=== PATIENT | female | born 1940 | race Caucasian/White ===

== ENCOUNTER 2017-05-05 15:25 | Emergency (ER) | payer MEDICARE ==
[~2017-05-05] VITALS: Ht 160 cm; Wt 79.0 kg
[2017-05-05] MEDS ORDERED: ASPIRIN325 MG PO (15:35)
[2017-05-05] MEDS ORDERED: MONTELUKAST SOD10 MG PO (15:36)
[2017-05-05] MEDS ORDERED: LIPITOR40 M1 PO (15:36)
[2017-05-05] MEDS ORDERED: LISINOPRIL10 MG PO (15:36)
[2017-05-05] MEDS ORDERED: PRILOSEC OTC20 MG PO (15:36)
[2017-05-05] MEDS ORDERED: NAPROXEN250 MG PO (15:37)
[2017-05-05] MEDS ORDERED: CITALOPRAM20 MG PO (15:37)
[2017-05-05] MEDS ORDERED: ALBUTEROL SUL0.083 % IN (15:37)
[2017-05-05] MEDS ORDERED: TRAMADOL HYDROC50 MG PO (16:42)
[2017-05-05 16:50] VITALS: BP 135/70
== END 2017-05-05 16:55 | disposition home or self-care (01) ==
LOC: ED 15:25
PROC: 2W3CX1Z Immobilization of Right Lower Arm using Splint (ICD-10-PCS; principal; 2017-05-05)
DX: S63.501A Unspecified sprain of right wrist, initial encounter (principal); S80.212A Abrasion, left knee, initial encounter; S00.81XA Abrasion of other part of head, initial encounter; I10 Essential (primary) hypertension; J44.9 Chronic obstructive pulmonary disease, unspecified; W01.0XXA Fall on same level from slipping, tripping and stumbling without subsequent striking against object, initial encounter; Y92.481 Parking lot as the place of occurrence of the external cause

== ENCOUNTER 2017-05-15 18:28 | Inpatient (IN) | payer MEDICARE ==
[~2017-05-15] VITALS: Ht 160 cm; Wt 65.0 kg
[~2017-05-15 18:28] MED LIST: ALBUTEROL SUL0.083 % IN; ASPIRIN325 MG PO; CITALOPRAM20 MG PO; LIPITOR40 M1 PO; LISINOPRIL10 MG PO; MONTELUKAST SOD10 MG PO; NAPROXEN250 MG PO; PRILOSEC OTC20 MG PO; TRAMADOL HYDROC50 MG PO
[2017-05-15 18:56] LABS: HEMATOCRIT 38.2 % (37.0-47.0); IMMATURE GRANULOCYTES 0.4 % (0.0-1.0); MEAN CELL VOLUME 80.4 fL CALC (80.0-100.0); MEAN CORPUSCULAR HGB 25.3 pG CALC (26.0-32.0); MEAN CORPUSCULAR HGB CONC 31.4 g/L CALC (32.0-36.0); NEUT# 3.86 thou/uL (2.00-7.15); RED BLOOD COUNT 4.75 mill/uL (4.20-5.60); RED CELL DISTRI WIDTH 15.1 % (11.5-15.5)
[2017-05-15 19:50] LABS: ALBUMIN 3.6 g/dL (3.2-5.0); ALKALINE PHOSPHATASE 88 u/l (38-126); ANION GAP 14 (6-22 (CALC)); BILIRUBIN, TOTAL 0.5 mg/dL (0.0-1.4); BUN 20 mg/dL (8-23); BUN/CREATININE RATIO 20 (12-20 (CALC)); CALCIUM 9.1 mg/dL (8.4-10.2); CARBON DIOXIDE 27 mmol/l (22-30); CHLORIDE 97 mmol/l (95-108); GFR 54 ML/MIN (>=60 (CALC)); GFR FOR AFR.AMER. > 60 ML/MIN (>=60 (CALC)); GLUCOSE 116 mg/dL (82-115); POTASSIUM 3.5 mmol/l (3.5-5.1); SGOT/AST 33 u/l (9-36); SGPT/ALT 38 u/l (11-66); SODIUM 135 mmol/l (137-146); TOTAL PROTEIN 6.5 g/dL (6.3-8.2)
[2017-05-15] MEDS ORDERED: BREO ELLIPTA1 INH IN (19:54)
[2017-05-15] MEDS ORDERED: ASPIRIN81 MG PO (19:56)
[2017-05-15] MEDS ORDERED: ZPAK PO (19:56)
[2017-05-15] MEDS ORDERED: ZOFRAN ODT4 MG PO (19:57)
[2017-05-15 20:00] VITALS: BP 138/59
[2017-05-15 20:01] LABS: MYOGLOBIN 72 ng/mL (0 - 62)
[2017-05-15 20:31] LABS: INTERNATIONAL NORMALIZED RATIO 0.9 RATIO (0.7-1.3); PROTHROMBIN TIME 10.1 SECONDS (9.0-12.5)
[2017-05-15 22:15] VITALS: BP 142/69
[2017-05-16 04:55] VITALS: BP 130/61
[2017-05-16 09:00] VITALS: BP 135/66
[2017-05-16 11:20] VITALS: BP 132/65
[2017-05-16 15:45] VITALS: BP 150/63
[2017-05-16 19:30] VITALS: BP 152/89
[2017-05-16 23:58] VITALS: BP 115/54
[2017-05-17] VITALS (12 sets, daily range): BP systolic 101–145; BP diastolic 47–70
[2017-05-17 10:39] LABS: HEMATOCRIT 33.8 % (37.0-47.0); HEMOGLOBIN 10.6 g/dl (12.0-16.0); IMMATURE GRANULOCYTES 0.3 % (0.0-1.0); MEAN CELL VOLUME 81.6 fL CALC (80.0-100.0); MEAN CORPUSCULAR HGB 25.6 pG CALC (26.0-32.0); MEAN CORPUSCULAR HGB CONC 31.4 g/L CALC (32.0-36.0); NEUT# 5.84 thou/uL (2.00-7.15); RED BLOOD COUNT 4.14 mill/uL (4.20-5.60); RED CELL DISTRI WIDTH 15.1 % (11.5-15.5)
[2017-05-17 10:52] LABS: ANION GAP 11 (6-22 (CALC)); BUN 19 mg/dL (8-23); BUN/CREATININE RATIO 24 (12-20 (CALC)); CALCIUM 8.7 mg/dL (8.4-10.2); CARBON DIOXIDE 30 mmol/l (22-30); CHLORIDE 99 mmol/l (95-108); CREATININE 0.8 mg/dL (0.5-1.0); GFR > 60 ML/MIN (>=60 (CALC)); GFR FOR AFR.AMER. > 60 ML/MIN (>=60 (CALC)); GLUCOSE 144 mg/dL (82-115); POTASSIUM 3.2 mmol/l (3.5-5.1); SODIUM 137 mmol/l (137-146)
[2017-05-18] VITALS (12 sets, daily range): BP systolic 108–146; BP diastolic 47–74
[2017-05-18 05:04] LABS: HEMATOCRIT 31.7 % (37.0-47.0); HEMOGLOBIN 9.9 g/dl (12.0-16.0); IMMATURE GRANULOCYTES 0.2 % (0.0-1.0); MEAN CELL VOLUME 81.1 fL CALC (80.0-100.0); MEAN CORPUSCULAR HGB 25.3 pG CALC (26.0-32.0); MEAN CORPUSCULAR HGB CONC 31.2 g/L CALC (32.0-36.0); NEUT# 3.35 thou/uL (2.00-7.15); RED BLOOD COUNT 3.91 mill/uL (4.20-5.60); RED CELL DISTRI WIDTH 15.1 % (11.5-15.5)
[2017-05-18 05:24] LABS: ANION GAP 9 (6-22 (CALC)); BUN 16 mg/dL (8-23); BUN/CREATININE RATIO 19 (12-20 (CALC)); CALCIUM 8.7 mg/dL (8.4-10.2); CARBON DIOXIDE 33 mmol/l (22-30); CHLORIDE 100 mmol/l (95-108); CREATININE 0.8 mg/dL (0.5-1.0); GFR > 60 ML/MIN (>=60 (CALC)); GFR FOR AFR.AMER. > 60 ML/MIN (>=60 (CALC)); GLUCOSE 106 mg/dL (82-115); POTASSIUM 3.4 mmol/l (3.5-5.1); SODIUM 138 mmol/l (137-146)
[2017-05-18 08:40] LABS: MAGNESIUM 1.8 mg/dL (1.6-2.3)
[2017-05-19] VITALS (10 sets, daily range): BP systolic 109–151; BP diastolic 39–73
[2017-05-19 04:41] LABS: HEMATOCRIT 31.3 % (37.0-47.0); HEMOGLOBIN 9.8 g/dl (12.0-16.0); MEAN CELL VOLUME 81.9 fL CALC (80.0-100.0); MEAN CORPUSCULAR HGB 25.7 pG CALC (26.0-32.0); MEAN CORPUSCULAR HGB CONC 31.3 g/L CALC (32.0-36.0); RED BLOOD COUNT 3.82 mill/uL (4.20-5.60); RED CELL DISTRI WIDTH 15.2 % (11.5-15.5)
[2017-05-19 04:54] LABS: ANION GAP 11 (6-22 (CALC)); BUN 17 mg/dL (8-23); BUN/CREATININE RATIO 20 (12-20 (CALC)); CALCIUM 8.6 mg/dL (8.4-10.2); CARBON DIOXIDE 32 mmol/l (22-30); CHLORIDE 101 mmol/l (95-108); CREATININE 0.9 mg/dL (0.5-1.0); GFR > 60 ML/MIN (>=60 (CALC)); GFR FOR AFR.AMER. > 60 ML/MIN (>=60 (CALC)); GLUCOSE 103 mg/dL (82-115); MAGNESIUM 1.9 mg/dL (1.6-2.3); SODIUM 140 mmol/l (137-146)
[2017-05-19] MEDS ORDERED: NEBULIZER COMPRESSOR (11:57)
[2017-05-19] MEDS ORDERED: CARDIZEM CD120 M1 PO (11:57)
[2017-05-19] MEDS ORDERED: XARELTO10 MG PO (11:57)
[2017-05-19] MEDS ORDERED: DUONEB IN (11:57)
[2017-05-19] MEDS ORDERED: VANTIN200 M1 PO (11:57)
== END 2017-05-19 18:40 | DRG 190 ==
LOC: ED 18:28 → ED-I 19:45 → ED 21:13 → MS2 21:13 → ICU 21:13 → MS2 21:13 → ICU 05-17 15:32
PROVIDERS: Emergency Medicine; Internal Medicine; Nurse Practitioner Family; ADMIT Internal Medicine; ATTEND Internal Medicine
DX: J44.0 Chronic obstructive pulmonary disease with (acute) lower respiratory infection (principal); J18.9 Pneumonia, unspecified organism; J96.11 Chronic respiratory failure with hypoxia; I48.0 Paroxysmal atrial fibrillation; D64.9 Anemia, unspecified; I10 Essential (primary) hypertension; E78.5 Hyperlipidemia, unspecified; T36.3X5A Adverse effect of macrolides, initial encounter; T50.995A Adverse effect of other drugs, medicaments and biological substances, initial encounter; S63.501D Unspecified sprain of right wrist, subsequent encounter; G47.33 Obstructive sleep apnea (adult) (pediatric); F41.9 Anxiety disorder, unspecified; F32.9 Major depressive disorder, single episode, unspecified; M19.90 Unspecified osteoarthritis, unspecified site; I25.10 Atherosclerotic heart disease of native coronary artery without angina pectoris; E66.9 Obesity, unspecified; W19.XXXD Unspecified fall, subsequent encounter; Z86.73 Personal history of transient ischemic attack (TIA), and cerebral infarction without residual deficits; Z87.891 Personal history of nicotine dependence
CPT/HCPCS: J1650

== ENCOUNTER 2017-07-02 14:29 | Inpatient (IN) | payer MEDICARE ==
[~2017-07-02] VITALS: Ht 160 cm; Wt 75.4 kg
[~2017-07-02 14:29] MED LIST changes: +ASPIRIN81 MG PO; +BREO ELLIPTA1 INH IN; +CARDIZEM CD120 M1 PO; +DUONEB IN; +NEBULIZER COMPRESSOR; +VANTIN200 M1 PO; +XARELTO10 MG PO; +ZOFRAN ODT4 MG PO; +ZPAK PO
[2017-07-02 16:06] LABS: HEMATOCRIT 35.6 % (37.0-47.0); HEMOGLOBIN 11.3 g/dl (12.0-16.0); IMMATURE GRANULOCYTES 0.5 % (0.0-1.0); MEAN CELL VOLUME 79.5 fL CALC (80.0-100.0); MEAN CORPUSCULAR HGB 25.2 pG CALC (26.0-32.0); MEAN CORPUSCULAR HGB CONC 31.7 g/L CALC (32.0-36.0); NEUT# 11.8 thou/uL (2.00-7.15); RED BLOOD COUNT 4.48 mill/uL (4.20-5.60); RED CELL DISTRI WIDTH 15.8 % (11.5-15.5)
[2017-07-02 16:21] LABS: ALKALINE PHOSPHATASE 124 u/l (38-126); ANION GAP 14 (6-22 (CALC)); BILIRUBIN, TOTAL 0.7 mg/dL (0.0-1.4); BUN 15 mg/dL (8-23); BUN/CREATININE RATIO 17 (12-20 (CALC)); CALCIUM 9.7 mg/dL (8.4-10.2); CARBON DIOXIDE 26 mmol/l (22-30); CHLORIDE 101 mmol/l (95-108); CREATININE 0.9 mg/dL (0.5-1.0); GFR > 60 ML/MIN (>=60 (CALC)); GFR FOR AFR.AMER. > 60 ML/MIN (>=60 (CALC)); GLUCOSE 135 mg/dL (82-115); SGOT/AST 19 u/l (9-36); SGPT/ALT 23 u/l (11-66); SODIUM 137 mmol/l (137-146); TOTAL PROTEIN 7.1 g/dL (6.3-8.2)
[2017-07-02 16:33] LABS: MYOGLOBIN 113 ng/mL (0 - 62)
[2017-07-02 23:40] VITALS: BP 139/65
[2017-07-03 04:35] VITALS: BP 122/56
[2017-07-03 06:51] LABS: URINE BILIRUBIN - DIPSTICK NEGATIVE (NEGATIVE); URINE BLOOD DIPSTICK NEGATIVE (NEGATIVE); URINE COLOR YELLOW; URINE GLUCOSE - DIPSTICK NEGATIVE (NEGATIVE); URINE KETONE NEGATIVE (NEGATIVE); URINE LEUK ESTERASE NEGATIVE (NEGATIVE); URINE NITRITE - DIPSTICK NEGATIVE (Negative); URINE PH 5.5 (4.5-8.0); URINE PROTEIN - DIPSTICK TRACE mg/dL (NEG-TRACE); URINE UROBILINOGEN - DIPSTICK 0.2 E.U./dL (0.2)
[2017-07-03 06:53] LABS: URINE CLARITY CLEAR
[2017-07-03 08:56] VITALS: BP 138/55
[2017-07-03] MEDS ORDERED: HYDROCHLOROT12.5 M1 PO (09:40)
[2017-07-03] MEDS ORDERED: DALIRESP500 MCG PO (09:41)
[2017-07-03] MEDS ORDERED: FLONASE AL50 MCG/ACT (09:42)
[2017-07-03] MEDS ORDERED: BUSPIRONE7.5 MG PO (09:43)
[2017-07-03 12:29] VITALS: BP 136/64
[2017-07-03 16:47] VITALS: BP 127/61
[2017-07-03 19:30] VITALS: BP 125/52
[2017-07-03 23:54] VITALS: BP 129/64
[2017-07-04 05:24] VITALS: BP 108/50
[2017-07-04 06:01] LABS: HEMATOCRIT 31.9 % (37.0-47.0); HEMOGLOBIN 10.1 g/dl (12.0-16.0); IMMATURE GRANULOCYTES 0.7 % (0.0-1.0); MEAN CELL VOLUME 80.2 fL CALC (80.0-100.0); MEAN CORPUSCULAR HGB 25.4 pG CALC (26.0-32.0); MEAN CORPUSCULAR HGB CONC 31.7 g/L CALC (32.0-36.0); NEUT# 11.47 thou/uL (2.00-7.15); RED BLOOD COUNT 3.98 mill/uL (4.20-5.60); RED CELL DISTRI WIDTH 15.9 % (11.5-15.5)
[2017-07-04 06:40] LABS: ANION GAP 17 (6-22 (CALC)); BUN 31 mg/dL (8-23); BUN/CREATININE RATIO 31 (12-20 (CALC)); CALCIUM 9.7 mg/dL (8.4-10.2); CARBON DIOXIDE 25 mmol/l (22-30); CHLORIDE 102 mmol/l (95-108); GFR 54 ML/MIN (>=60 (CALC)); GFR FOR AFR.AMER. > 60 ML/MIN (>=60 (CALC)); GLUCOSE 144 mg/dL (82-115); MAGNESIUM 2.1 mg/dL (1.6-2.3); POTASSIUM 4.3 mmol/l (3.5-5.1); SODIUM 140 mmol/l (137-146)
[2017-07-04 08:08] VITALS: BP 149/67
[2017-07-04 08:30] LABS: C. DIFFICILE TOXIN A&B NEGATIVE (NEGATIVE)
[2017-07-04 11:00] VITALS: BP 167/68
[2017-07-04] MEDS ORDERED: DOXYCYCL HYC100 MG PO (13:20)
== END 2017-07-04 14:45 | disposition home or self-care (01) | DRG 190 ==
LOC: ED 14:29 → ED-I 15:40 → ED 17:11 → MS2 17:12
PROVIDERS: Emergency Medicine; Nurse Practitioner Family; ADMIT Internal Medicine; ATTEND Internal Medicine
DX: J44.1 Chronic obstructive pulmonary disease with (acute) exacerbation (principal); J96.21 Acute and chronic respiratory failure with hypoxia; I48.0 Paroxysmal atrial fibrillation; Z99.81 Dependence on supplemental oxygen; K52.9 Noninfective gastroenteritis and colitis, unspecified; I10 Essential (primary) hypertension; E78.5 Hyperlipidemia, unspecified; D64.9 Anemia, unspecified; Z79.01 Long term (current) use of anticoagulants; Z87.891 Personal history of nicotine dependence; Z87.01 Personal history of pneumonia (recurrent)
CPT/HCPCS: G0378

== ENCOUNTER 2017-12-06 15:17 | Inpatient (IN) | payer MEDICARE ==
[2017-12-06] VITALS (13 sets, daily range): BP systolic 114–147; BP diastolic 52–71
[~2017-12-06] VITALS: Ht 160 cm; Wt 78.6 kg
[~2017-12-06 15:17] MED LIST changes: +BUSPIRONE7.5 MG PO; +DALIRESP500 MCG PO; +DOXYCYCL HYC100 MG PO; +FLONASE AL50 MCG/ACT; +HYDROCHLOROT12.5 M1 PO
[2017-12-06 16:03] LABS: IMMATURE GRANULOCYTES 0.2 % (0.0-1.0); MEAN CELL VOLUME 80.2 fL CALC (80.0-100.0); MEAN CORPUSCULAR HGB 25.2 pG CALC (26.0-32.0); MEAN CORPUSCULAR HGB CONC 31.4 g/L CALC (32.0-36.0); NEUT# 10.26 thou/uL (2.00-7.15); RED BLOOD COUNT 4.84 mill/uL (4.20-5.60)
[2017-12-06 16:12] LABS: BUN 20 mg/dL (8-23); BUN/CREATININE RATIO 21 (12-20 (CALC)); CARBON DIOXIDE 25 mmol/l (22-30); CHLORIDE 100 mmol/l (95-108); GFR 54 ML/MIN (>=60 (CALC)); GFR FOR AFR.AMER. > 60 ML/MIN (>=60 (CALC)); SODIUM 136 mmol/l (137-146)
[2017-12-06 16:13] LABS: ANION GAP 14 (6-22 (CALC)); POTASSIUM 3.2 mmol/l (3.5-5.1)
[2017-12-06 16:14] LABS: HEMATOCRIT 38.8 % (37.0-47.0); HEMOGLOBIN 12.2 g/dl (12.0-16.0)
[2017-12-07] VITALS (9 sets, daily range): BP systolic 107–153; BP diastolic 47–81
[2017-12-07 06:57] LABS: HEMOGLOBIN 11.2 g/dl (12.0-16.0); MEAN CELL VOLUME 81.8 fL CALC (80.0-100.0); MEAN CORPUSCULAR HGB 25.5 pG CALC (26.0-32.0); MEAN CORPUSCULAR HGB CONC 31.1 g/L CALC (32.0-36.0); RED BLOOD COUNT 4.4 mill/uL (4.20-5.60); RED CELL DISTRI WIDTH 16.3 % (11.5-15.5)
[2017-12-07 08:04] LABS: BUN 17 mg/dL (8-23); BUN/CREATININE RATIO 20 (12-20 (CALC)); CARBON DIOXIDE 30 mmol/l (22-30); CHLORIDE 100 mmol/l (95-108); CREATININE 0.9 mg/dL (0.5-1.0); GFR > 60 ML/MIN (>=60 (CALC)); GFR FOR AFR.AMER. > 60 ML/MIN (>=60 (CALC)); MAGNESIUM 1.7 mg/dL (1.6-2.3); SODIUM 141 mmol/l (137-146)
[2017-12-07 08:14] LABS: ANION GAP 16 (6-22 (CALC)); POTASSIUM 4.5 mmol/l (3.5-5.1)
== END 2017-12-07 11:50 | disposition home or self-care (01) | DRG 310 ==
LOC: ED 15:17 → ED-I 16:36 → ED 16:48 → ICU 16:49
PROVIDERS: Family Medicine; Internal Medicine; ADMIT Internal Medicine; ATTEND Internal Medicine
DX: I48.0 Paroxysmal atrial fibrillation (principal); J44.9 Chronic obstructive pulmonary disease, unspecified; I10 Essential (primary) hypertension; E78.5 Hyperlipidemia, unspecified; Z79.01 Long term (current) use of anticoagulants; Z87.891 Personal history of nicotine dependence

== ENCOUNTER → 2018-09-15 | Outpatient (REF) ==
[~2018-09-15] MED LIST changes: +ANORO ELLIPTA 61 AER IN; +ATORVASTATIN CA20 MG PO; +CARDIZEM CD120 MG PO; +DIFLUCAN100 M1 PO; -FLONASE AL50 MCG/ACT; +FLONASE AL50 MCG/ACT IN; +LEVAQUIN750 M1 PO; +LISINOPRIL5 MG PO; +Levaquin PO; +PREDNISONE5 MG PO
== END | disposition home or self-care (01) | DRG 684 ==
LOC: LAB 14:24
PROVIDERS: ATTEND Nurse Practitioner Family
DX: N18.9 Chronic kidney disease, unspecified (principal); I10 Essential (primary) hypertension

== ENCOUNTER → 2018-09-15 | Outpatient (REF) | payer MEDICARE | END | disposition home or self-care (01) | LOC: DI 14:22 | PROVIDERS: ATTEND Nurse Practitioner Family | DX: R05 Cough (principal); J98.11 Atelectasis ==

== ENCOUNTER 2018-09-18 11:30 | Emergency (ER) | payer MEDICARE ==
[~2018-09-18] VITALS: Ht 160 cm; Wt 75.0 kg
[~2018-09-18 11:30] MED LIST changes: -ANORO ELLIPTA 61 AER IN; -ATORVASTATIN CA20 MG PO; -CARDIZEM CD120 MG PO; -DIFLUCAN100 M1 PO; -LEVAQUIN750 M1 PO; -LISINOPRIL5 MG PO; -Levaquin PO; -PREDNISONE5 MG PO
[2018-09-18] MEDS ORDERED: ANORO ELLIPTA 61 AER IN (11:48)
[2018-09-18] MEDS ORDERED: LISINOPRIL5 MG PO (11:49)
[2018-09-18 11:51] LABS: HEMATOCRIT 35.7 % (37.0-47.0); HEMOGLOBIN 10.7 g/dl (12.0-16.0); IMMATURE GRANULOCYTES 0.5 % (0.0-5.0); MEAN CELL VOLUME 83.2 fL CALC (80.0-100.0); MEAN CORPUSCULAR HGB 24.9 pG CALC (26.0-32.0); NEUT# 8.68 thou/uL (2.00-7.15); RED BLOOD COUNT 4.29 mill/uL (4.20-5.60); RED CELL DISTRI WIDTH 15.7 % (11.5-15.5)
[2018-09-18] MEDS ORDERED: Levaquin PO (11:53)
[2018-09-18 12:08] LABS: ALBUMIN 3.9 g/dL (3.2-5.0); ALKALINE PHOSPHATASE 110 u/l (38-126); ANION GAP 14 (6-22 (CALC)); BILIRUBIN, TOTAL 0.4 mg/dL (0.0-1.4); BUN 22 mg/dL (8-23); BUN/CREATININE RATIO 28 (12-20 (CALC)); CARBON DIOXIDE 27 mmol/l (22-30); CHLORIDE 102 mmol/l (95-108); CREATININE 0.8 mg/dL (0.5-1.0); GFR > 60 ML/MIN (>=60 (CALC)); GFR FOR AFR.AMER. > 60 ML/MIN (>=60 (CALC)); POTASSIUM 3.8 mmol/l (3.5-5.1); SGOT/AST 18 u/l (9-36); SODIUM 139 mmol/l (137-146); TOTAL PROTEIN 6.7 g/dL (6.3-8.2)
[2018-09-18 13:24] VITALS: BP 127/61
== END 2018-09-18 13:30 | disposition home or self-care (01) ==
LOC: ED 11:30
PROVIDERS: Emergency Medicine
DX: R00.2 Palpitations (principal); I10 Essential (primary) hypertension; R06.02 Shortness of breath; I48.91 Unspecified atrial fibrillation; Z86.73 Personal history of transient ischemic attack (TIA), and cerebral infarction without residual deficits

== ENCOUNTER 2018-09-24 13:16 | Inpatient (IN) | payer MEDICARE ==
[~2018-09-24] VITALS: Ht 160 cm; Wt 79.6 kg
[~2018-09-24 13:16] MED LIST changes: +ANORO ELLIPTA 61 AER IN; +LISINOPRIL5 MG PO; +Levaquin PO
--- NOTE | 2018-09-24 13:32 | NUR ---
PATIENT TO ROOM VIA WHEELCHAIR AND PRACTIONER AT BEDSIDE FOR EVAL
--- NOTE | 2018-09-24 14:25 | NUR ---
PATIENT REPORTS HAVING COUGH/COLD STARTING YESTERDAY, PRODUCTIVE COUGH PATIENT HAS DIMINISHED LUNG SOUNDS TO BILATERAL LOWER LOBES, CLEAR UPPER LOBES. REPORTS CHEST PRESSURE RATES 6/10. IV SITE TO RAC #20, LAB WORK COLLECTED. PATIENT UPDATED ON PLAN OF CARE. VERBAL UNDERSTANDING. WILL CONTINUE TO MONITOR.
[2018-09-24] MEDS ORDERED: CARDIZEM CD120 MG PO (14:44)
[2018-09-24] MEDS ORDERED: ATORVASTATIN CA20 MG PO (14:45)
[2018-09-24 15:04] LABS: HEMOGLOBIN 10.6 g/dl (12.0-16.0); IMMATURE GRANULOCYTES 0.7 % (0.0-5.0); MEAN CELL VOLUME 81.8 fL CALC (80.0-100.0); MEAN CORPUSCULAR HGB 24.8 pG CALC (26.0-32.0); MEAN CORPUSCULAR HGB CONC 30.3 g/L CALC (32.0-36.0); NEUT# 21.14 thou/uL (2.00-7.15); RED BLOOD COUNT 4.28 mill/uL (4.20-5.60); RED CELL DISTRI WIDTH 15.4 % (11.5-15.5)
[2018-09-24 15:21] LABS: ALBUMIN 3.7 g/dL (3.2-5.0); ALKALINE PHOSPHATASE 115 u/l (38-126); ANION GAP 13 (6-22 (CALC)); BILIRUBIN, TOTAL 0.5 mg/dL (0.0-1.4); BUN 17 mg/dL (8-23); BUN/CREATININE RATIO 21 (12-20 (CALC)); CARBON DIOXIDE 27 mmol/l (22-30); CHLORIDE 99 mmol/l (95-108); CREATININE 0.8 mg/dL (0.5-1.0); GFR > 60 ML/MIN (>=60 (CALC)); GFR FOR AFR.AMER. > 60 ML/MIN (>=60 (CALC)); POTASSIUM 3.1 mmol/l (3.5-5.1); SGOT/AST 20 u/l (9-36); SODIUM 136 mmol/l (137-146); TOTAL PROTEIN 6.5 g/dL (6.3-8.2)
--- NOTE | 2018-09-24 15:30 | NUR ---
JOHN AT BEDSIDE PER DAUGHTER'S REQUEST.
[2018-09-24 15:33] LABS: PROTHROMBIN TIME 10.5 SECONDS (9.0-12.5)
--- NOTE | 2018-09-24 16:15 | NUR ---
PATIENT REPORTS CHEST PRESSURE 4/10, DENIES ANY NAUSEA AFTER BEING MEDICATED WITH 10 MG OF REGLAN IV.
--- NOTE | 2018-09-24 16:20 | NUR ---
PATIENT REPORT HAVING TO USE C-PAP AT HOME FOR NIGHT TIME USE ONLY.
--- NOTE | 2018-09-24 17:07 | NUR ---
REPORT CALLED TO DILMA CINTRON.
--- NOTE | 2018-09-24 17:15 | NUR ---
PT ARRIVED TO FLOOR VIA STRETCHER IN STABLE CONDITION ACCOMPANIED BY ALIYA RAYO;WT AND VS OBTAINED BY DA YIN;PT AMBULATED WITH A STEADY GAIT TO RESTROOM AND VOIDED 50CC OF CLOUDY/YELLOW URINE;PT ALERT AND ORIENTED X3,ORIENTED TO ROOM AND CALL LIGHT SYTSEM;PT REPORTS INCREASING SOB, NAUSEA AND COUGHING X2 DAYS;PT REPORTS CHEST DISCOMFORT HAS DECREASED TO A 4/10 ON THE PAIN SCALE SINCE PAIN MEDICATION ADMINISTRATION IN ER, PAIN SCALE AND REPORTING EDUCATED;ASSESSMENT COMPLETED;RESPIRATIONS SHALLOW ON O2 @ 2L VIA NC, DIMINISHED LUNG SOUNDS NOTED;NON-PRODUCTIVE COUGH AT THIS TIME;ABDOMEN SOFT ON PALPATION AND ACTIVE IN ALL 4 QUADRANTS, LAST BM 09/24/18;STRONG PEDAL PULSES;SKIN INTACT;#20G TO RAC INFUSING FLUIDS WITH EASE,SITE APPEARS HEALTHY;ALL SAFETY PRECAUTIONS REINFORCED AT THIS TIME;FRESH WATER PROVIDED;PT DENIES ANY ADDITIONAL NEEDS AND IS ENCOURAGED TO CALL FOR ASSISTANCE IF NEEDED;CALL LIGHT IN REACH;WILL CONTINUE TO MONITOR
--- NOTE | 2018-09-24 17:15 | NUR ---
PATIENT TRANSPORTED TO [facility] VIA STRETCHER WITH IV FLUIDS TO CONTINUE INFUSING. DILMA CINTRON INFORMED OF NO TELE ORDER AND NO NEW ORDERS RECEIVED FROM FOR TELE. PATIENT IN STABLE CONDITION. CARE RELINQUISHED. CELL PHONE, CLOTHING, SHOES,AND BACK BRACE TO [facility] WITH PATIENT.
[2018-09-24 17:46] VITALS: BP 137/47
[2018-09-24 18:25] LABS: URINE BILIRUBIN - DIPSTICK NEGATIVE (NEGATIVE); URINE BLOOD DIPSTICK NEGATIVE (NEGATIVE); URINE COLOR YELLOW; URINE GLUCOSE - DIPSTICK NEGATIVE (NEGATIVE); URINE KETONE NEGATIVE (NEGATIVE); URINE LEUK ESTERASE NEGATIVE (NEGATIVE); URINE NITRITE - DIPSTICK NEGATIVE (Negative); URINE PH 5.5 (4.5-8.0); URINE PROTEIN - DIPSTICK TRACE mg/dL (NEG-TRACE); URINE SPECIFIC GRAVITY >=1.030; URINE UROBILINOGEN - DIPSTICK 0.2 E.U./dL (0.2)
--- NOTE | 2018-09-24 18:50 | NUR ---
PT REPPORTS IV SITE TO RAC TO BE "BURNING", SITE FOUND TO BE INFILTRATED AND REMOVED WITH CATHETER INTACT;NEW #22G STARTED TO LAC ON FIRST ATTEMPT BY THIS WRITTER AND PT TOLERATED WELL;IV FLUIDS RE-STARTED AT THIS TIME;PT DENIES ANY ADDITIONAL NEEDS;WILL CONTINUE TO MONITOR
[2018-09-24 19:16] VITALS: BP 116/47
--- NOTE | 2018-09-24 19:23 | NUR ---
POC DISCUSSED W/PT AND FAMILY X2 AT BEDSIDE. NO S/O DISTRESS NOTED AT THIS TIME.
--- NOTE | 2018-09-24 21:17 | NUR ---
POC DISCUSSED W/PT, PT MEDICATED ORDERS PROVIDE. PHYS NOTIFIED FOR ORDERS REQUESTED BY PT/ORDERS PROVIDED. LUNG SOUNDS ARE DIM, PT REPORTS BM TODAY NORMAL, PT IS HAVING A COUGHING SPELL, GAGGED AND VOMITED 25CC OF YELLOW EMESIS W/CHUNKS OF FOOD. ABD SOFT NON-TENDER W/ACTIVE BOWEL SOUNDS. PT REQUESTING BREATHING TREATMENT/RESPIRATORY CONTACTED. WILL FOLLOW-UP AND CONTINUE TO MONITOR. CALL LIGHT IS AT BEDSIDE.
[2018-09-25 03:55] VITALS: BP 135/60
--- NOTE | 2018-09-25 03:55 | NUR ---
PT V/S ASSESSED PT WANTED TO WAIT FOR TYLENOL/TEMP 99.4. ROOM IS COOL,MINIMAL COVERS IN PLACE.
[2018-09-25 04:52] LABS: HEMATOCRIT 31.4 % (37.0-47.0); HEMOGLOBIN 9.7 g/dl (12.0-16.0); IMMATURE GRANULOCYTES 0.6 % (0.0-5.0); MEAN CELL VOLUME 81.6 fL CALC (80.0-100.0); MEAN CORPUSCULAR HGB 25.2 pG CALC (26.0-32.0); MEAN CORPUSCULAR HGB CONC 30.9 g/L CALC (32.0-36.0); NEUT# 18.72 thou/uL (2.00-7.15); RED BLOOD COUNT 3.85 mill/uL (4.20-5.60); RED CELL DISTRI WIDTH 15.7 % (11.5-15.5)
[2018-09-25 04:58] LABS: ALBUMIN 3.1 g/dL (3.2-5.0); ALKALINE PHOSPHATASE 94 u/l (38-126); BILIRUBIN, TOTAL 0.3 mg/dL (0.0-1.4); BUN 20 mg/dL (8-23); BUN/CREATININE RATIO 24 (12-20 (CALC)); CARBON DIOXIDE 24 mmol/l (22-30); CHLORIDE 103 mmol/l (95-108); CREATININE 0.8 mg/dL (0.5-1.0); GFR > 60 ML/MIN (>=60 (CALC)); GFR FOR AFR.AMER. > 60 ML/MIN (>=60 (CALC)); LIPASE 38 u/l (23-300); MAGNESIUM 1.7 mg/dL (1.6-2.3); SGOT/AST 15 u/l (9-36); SODIUM 136 mmol/l (137-146); TOTAL PROTEIN 5.5 g/dL (6.3-8.2)
[2018-09-25 05:05] LABS: AMYLASE < 30 u/l (30-110); ANION GAP 13 (6-22 (CALC))
[2018-09-25 08:29] VITALS: BP 140/91
--- NOTE | 2018-09-25 10:08 | NUR ---
DISCUSSED TELEMETRY WITH PT, IN AGREEMENT WITH PLAN. PT STATES SHE IS HAVING ANXIETY AFTER NEB TX ,"IT FEELS LIKE I'M GOING 90MPH AND EVERYONE IS GOING 30" NOTIFIED AMMUNITION ASSEMBLY II LABORER. NEW ORDERS AR TO BE PLACED.
[2018-09-25 11:00] VITALS: BP 134/52
--- NOTE | 2018-09-25 13:14 | NUR ---
S: SALLY HOLLEY is a 77 F who presents WITH PNEMONIA/COPD . All medications in patient's chart were reviewed. O: VS: BP 134/52, P 92, RR18,T 99.6 W 74kg, HT 63IN, Scr= 0.8,CrCl= 46 ml/min A: Blood culture <is pending/show> which is sensitive to <>. Urine culture <is pending/show> which is sensitive to <>. P: Patient is on VANCO/ CEFEPIME / AZTHROMYCIN . Vancomycin ordered for pharmacy to dose. Start Vancomycin 1000MG IV Q24H. Vancomycin trough is drawn before the 4th dose on 09/28/18 @1100. Vancomycin goal trough is between <15-20 mcg/ml>. Pharmacy will follow and or advise on antibiotics use as needed. HUNTER KWON PHARMD
[2018-09-25 14:50] VITALS: BP 137/62
[2018-09-25 19:03] VITALS: BP 135/52
--- NOTE | 2018-09-25 20:16 | NUR ---
PT MEDICATED ORDERS PROVIDE AND FOR ANXIETY PER REQUEST. PT APPEARS CALM BUT REPORTED STARTING TO FEEL "A LITTLE ANXIOUS." IV FLUIDS ARE RUNNING ORDERED. LUNG SOUNDS ARE COURSE THROUGHOUT, ABD SOFT NON-TENDER W/ACTIVE BOWEL SOUNDS, PT REPORTS TWO STOOL THIS DAY/DENIES DIAHRREA. DENIES DIFFICULTY URINATING/STRESS INCONTINENCE WHEN COUGHING ONLY. SKIN IS INTACT, TRACE EDEMA GENERALIZED. LOCX4. POC DISCUSSED, PT DENIES ANY OTHER NEEDS. FAMILY ARRIVING TO VISIT PT. PT ENCOURAGED TO CALL IF ANY NEEDS ARISE.
--- NOTE | 2018-09-25 22:19 | NUR ---
PT MEDICATED W/IV ANTIBIOTIC THERAPY AT THIS TIME. NO S/O DISTRESS, PT WAS SLEEPING, BUT AWOKE TO MY VOICE. DENIES ANY NEEDS AT THIS TIME. CALL LIGHT IS AT BEDSIDE.
[2018-09-25 23:48] VITALS: BP 150/63
--- NOTE | 2018-09-26 03:30 | NUR ---
IV FLUIDS REPLACED AT THIS TIME. PT IS SLEEPING W/CPAP ON. NO S/O DISTRESS NOTED. CALL LIGHT AT BEDSIDE.
[2018-09-26 04:00] VITALS: BP 134/54
[2018-09-26 05:34] LABS: ANION GAP 9 (6-22 (CALC)); BUN 23 mg/dL (8-23); BUN/CREATININE RATIO 35 (12-20 (CALC)); CARBON DIOXIDE 23 mmol/l (22-30); CHLORIDE 107 mmol/l (95-108); CREATININE 0.7 mg/dL (0.5-1.0); GFR > 60 ML/MIN (>=60 (CALC)); GFR FOR AFR.AMER. > 60 ML/MIN (>=60 (CALC)); MAGNESIUM 1.8 mg/dL (1.6-2.3); POTASSIUM 3.9 mmol/l (3.5-5.1); SODIUM 136 mmol/l (137-146)
[2018-09-26 06:00] LABS: HEMATOCRIT 27.1 % (37.0-47.0); HEMOGLOBIN 8.3 g/dl (12.0-16.0); IMMATURE GRANULOCYTES 0.5 % (0.0-5.0); MEAN CELL VOLUME 82.9 fL CALC (80.0-100.0); MEAN CORPUSCULAR HGB 25.4 pG CALC (26.0-32.0); MEAN CORPUSCULAR HGB CONC 30.6 g/L CALC (32.0-36.0); NEUT# 13.91 thou/uL (2.00-7.15); RED BLOOD COUNT 3.27 mill/uL (4.20-5.60); RED CELL DISTRI WIDTH 15.9 % (11.5-15.5)
--- NOTE | 2018-09-26 06:00 | NUR ---
PT SLEEPING SOUNDLY AT THIS TIME. NO S/O DISTRESS OR PAIN. IV PUMP CLEARED, PT DID NOT AWAKE. WILL CONTINUE TO MONITOR.
--- NOTE | 2018-09-26 08:50 | NUR ---
PT SITTING IN RECLINER AT BEDSIDE, NO SIGNS OF DISTRESS NOTED, RESP EVEN AND UNLABORED. PT ALERT AND ORIENTED X3, CPAP AT BEDSIDE, DISCUSSED POC, PT IN AGREEMENT. IVF INFUSING AT THIS TIME. ASSESSEMENT COMPLETED AT THIS TIME, CONTINUE TO MONITOR.
[2018-09-26 08:53] VITALS: BP 137/51
[2018-09-26 11:25] VITALS: BP 145/51
[2018-09-26 15:10] VITALS: BP 131/51
--- NOTE | 2018-09-26 19:10 | NUR ---
REPORT FROM BERENICE PERERA. PT SITTING UP AT SIDE OF BED WITH VISITORS IN ROOM. PT ALERT AND ORIENTED. IV SITE APPEARS HEALTHY. O2 AT 2L/M VIA NC. NO S/S OF RESPIRATORY DISTRESS NOTED. PT DENIES ANY PAIN OR DISCOMFORT. PT HAS NO WANTS OR NEEDS AT THIS TIME. CALL LIGHT WITHIN REACH. WILL CONTINUE TO MONITOR.
[2018-09-26 19:49] VITALS: BP 138/60
--- NOTE | 2018-09-26 20:40 | NUR ---
ER HEARING OFFICER ISABELL NOTIFIED CLINICAL QUALITY ANALYST PT APPEARS TO BE COVERTING TO AFIB. PT HAS HX OF AFIB. VS OBTAINED AT THIS TIME. 160/65 91 18 O2 SAT 98% ON 2L/M VIA NC. PT ASYMPTOMATIC AT THIS TIME. NOTIFIED DR. NOLAN. EKG OBTAINED WELL AND MADE MD AWARE OF RESULTS. NEW ORDERS TO CONSULT DR. HENDERSON. DISCUSSED WITH PT. PT VERBALIZED UNDERSTANDING. WILL CONTINUE TO MONITOR.
--- NOTE | 2018-09-26 22:10 | NUR ---
PT REQUESTS PRN COUGH MEDICINE. ADMINISTERED AT THIS TIME. PT DENIES ANY PAIN OR DISCOMFORT. NO RESPIRATORY DISTRESS NOTED. PT PLACED CPAP ON. WILL CONTINUE TO MONITOR.
[2018-09-27 00:10] VITALS: BP 137/63
--- NOTE | 2018-09-27 02:29 | NUR ---
PT RESTING IN BED WITH EYES CLOSED. CPAP ON. NO S/S OF DISTRESS NOTED. CALL LIGHT WITHIN REACH. WILL CONTINUE TO MONITOR.
[2018-09-27 04:04] VITALS: BP 124/55
[2018-09-27 05:12] LABS: HEMATOCRIT 28.7 % (37.0-47.0); IMMATURE GRANULOCYTES 0.8 % (0.0-5.0); MEAN CELL VOLUME 80.8 fL CALC (80.0-100.0); MEAN CORPUSCULAR HGB 25.4 pG CALC (26.0-32.0); MEAN CORPUSCULAR HGB CONC 31.4 g/L CALC (32.0-36.0); NEUT# 15.84 thou/uL (2.00-7.15); RED BLOOD COUNT 3.55 mill/uL (4.20-5.60); RED CELL DISTRI WIDTH 15.9 % (11.5-15.5)
[2018-09-27 05:20] LABS: ANION GAP 11 (6-22 (CALC)); CARBON DIOXIDE 23 mmol/l (22-30); CHLORIDE 107 mmol/l (95-108); CREATININE 0.7 mg/dL (0.5-1.0); GFR > 60 ML/MIN (>=60 (CALC)); GFR FOR AFR.AMER. > 60 ML/MIN (>=60 (CALC)); MAGNESIUM 1.8 mg/dL (1.6-2.3); POTASSIUM 4.3 mmol/l (3.5-5.1); SODIUM 137 mmol/l (137-146)
[2018-09-27 05:55] LABS: BUN 26 mg/dL (8-23); BUN/CREATININE RATIO 37 (12-20 (CALC))
--- NOTE | 2018-09-27 07:15 | NUR ---
REPORT RECEIVED FROM DILMA DALY;PT RESTING AT BEDSIDE WATCHING TV;INTRODUCED SELF TO PT AND POC DISCUSSED;RESPIRATIONS SHALLOW ON O2 @ 2L VIA NC;PT DENIES ANY CURRENT PAIN OR NEEDS;TELE MONITORING IN PLACE;ENCOURAGED PT TO CALL FOR ASSISTANCE IF NEEDED;FALL PRECAUTIONS IN PLACE WITH CALL LIGHT IN REACH;WILL CONTINUE TO MONITOR
[2018-09-27 09:03] VITALS: BP 155/77
--- NOTE | 2018-09-27 09:05 | NUR ---
PT OOB RESTING IN RECLINER,A&O X3;VS OBTAINED AND ASSESSMENT COMPLETED;PT DENIES ANY CURRENT PAIN,PAIN SCALE AND REPORTING EDUCATED;RESPIRATIONS SHALLOW ON O2 @ 2L VIA NC;ABDOMEN DISTENDED/SOFT ON PALPATION AND ACTIVE IN ALL 4 QUADRANTS;WEAK PEDAL PULSES;SKIN INTACT;TELE MONITORING IN PLACE;#22G TO LAC FLUSHED AND PATENT,SITE APPEARS HEALTHY;PT DENIES ANY ADDITIONAL NEEDS AT THIS TIME AND IS ENCOURAGED TO CALL FOR ASSISTANCE IF NEEDED;FALL PRECAUTIONS IN PLACE WITH CALL LIGHT IN REACH;WILL CONTINUE TO MONITOR
--- NOTE | 2018-09-27 09:23 | NUR ---
SPOKE TO DR. HENDERSON'S OFFICE STAFF AT [phone]. GAVE STAFF PT'S NAME, , AND ROOM NUMBER OF PT. STAFF TOLD UTILIZATION MANAGER THEY WILL LET DR. HENDERSON KNOW ABOUT THE CONSULTATION.
[2018-09-27 11:21] VITALS: BP 142/48
--- NOTE | 2018-09-27 11:30 | NUR ---
PT OOB RESTING IN RECLINER TALKING ON THE PHONE;RESPIRATIONS EVEN AND UNLABORED ON O2 @ 2L VIA NC;PT DENIES ANY CURRENT PAIN OR NEEDS;TELE MONITORING IN PLACE;IV SITE TO LAC REMAINS PATENT;ENCOURAGED PT TO CALL FOR ASSISTANCE IF NEEDED;CALL LIGHT IN REACH;WILL CONTINUE TO MONITOR
--- NOTE | 2018-09-27 12:06 | NUR ---
AT BEDSIDE DISCUSSING POC.
--- NOTE | 2018-09-27 15:40 | NUR ---
PT REMAINS OOB WITH VISITORS AT BEDSIDE;RESPIRATIONS EVEN AND UNLABORED ON O2 @ 2L VIA NC;PT DENIES ANY CURRENT PAIN OR NEEDS;IV SITE TO LAC REMAINS PATENT;TELE MONITORING IN PLACE;ASSESSMENT UNCHANGED AT THIS TIME;PT ENCOURAGED TO CALL FOR ASSISTANCE IF NEEDED;CALL LIGHT IN REACH;WILL CONTINUE TO MONITOR
[2018-09-27 16:00] VITALS: BP 154/61
[2018-09-27 19:15] VITALS: BP 146/56
--- NOTE | 2018-09-27 19:57 | NUR ---
PT. SITTING UP IN BED WITH NO DISTRESS NOTED; CPAP ON; IV SITE PATENT AND SL; ASSESSMENT COMPLETED; ENCOURAGED TO CALL FOR ANY NEEDS; CALL LIGHT IS IN REACH; WILL CONTINUE TO MONITOR.
--- NOTE | 2018-09-27 22:18 | NUR ---
PT. RESTING IN BED; MEDICATED WITH ORDERED CEFEPIME AND PRN XANAX PER REQUEST AND ORDER; DENIES FURTHER NEEDS; CALL LIGHT IS IN REACH.
[2018-09-28] VITALS (7 sets, daily range): BP systolic 126–186; BP diastolic 57–83
--- NOTE | 2018-09-28 00:08 | NUR ---
PT. RESTING IN BED WITH EYES CLOSED; NO DISTRESS NOTED; RESP EVEN AND UNLABORED; CALL LIGHT IS IN REACH; WILL CONTINUE TO MONITOR.
--- NOTE | 2018-09-28 03:27 | NUR ---
RESTING IN BED WITH EYES CLOSED; RESP EVEN AND UNLABORED; CPAP IN PLACE. CALL LIGHT IS IN REACH.
[2018-09-28 05:11] LABS: ALKALINE PHOSPHATASE 66 u/l (38-126); AMYLASE 36 u/l (30-110); ANION GAP 11 (6-22 (CALC)); BUN 23 mg/dL (8-23); BUN/CREATININE RATIO 35 (12-20 (CALC)); CARBON DIOXIDE 24 mmol/l (22-30); CHLORIDE 106 mmol/l (95-108); CREATININE 0.7 mg/dL (0.5-1.0); GFR > 60 ML/MIN (>=60 (CALC)); GFR FOR AFR.AMER. > 60 ML/MIN (>=60 (CALC)); LIPASE 65 u/l (23-300); MAGNESIUM 1.7 mg/dL (1.6-2.3); POTASSIUM 4.6 mmol/l (3.5-5.1); SGOT/AST 17 u/l (9-36); SODIUM 135 mmol/l (137-146); TOTAL PROTEIN 4.5 g/dL (6.3-8.2)
[2018-09-28 05:31] LABS: HEMATOCRIT 30.2 % (37.0-47.0); HEMOGLOBIN 9.1 g/dl (12.0-16.0); IMMATURE GRANULOCYTES 0.8 % (0.0-5.0); MEAN CELL VOLUME 82.5 fL CALC (80.0-100.0); MEAN CORPUSCULAR HGB 24.9 pG CALC (26.0-32.0); MEAN CORPUSCULAR HGB CONC 30.1 g/L CALC (32.0-36.0); NEUT# 11.09 thou/uL (2.00-7.15); RED BLOOD COUNT 3.66 mill/uL (4.20-5.60); RED CELL DISTRI WIDTH 15.9 % (11.5-15.5)
[2018-09-28 05:38] LABS: ALBUMIN 2.4 g/dL (3.2-5.0)
--- NOTE | 2018-09-28 07:05 | NUR ---
REPORT RECEIVED FROM ALIYA MENDIETA;PT APPEARS TO BE SLEEPING IN SEMI FOWLERS POSITION WITH HOME CPAP ON;NO S/S OF DISTRESS NOTED;RESPIRATIONS APPEAR EVEN AND UNLABORED AT THIS TIME;TELE MONITORING IN PLACE;FALL PRECAUTIONS NOTED WITH BED IN THE LOWEST POSITION AND CALL LIGHT IN REACH;WILL CONTINUE TO MONITOR
--- NOTE | 2018-09-28 09:25 | NUR ---
PT OOB RESTING IN RECLINER;VS OBTAINED AND ASSESSMENT COMPLETED;PT DENIES ANY CURRENT PAIN, PAIN SCALE AND REPORTING EDUCATED;PT REQUESTS PRN XANAX AND IS EDUCATED ON MEDICATION SCHEDULE,PT VERBALIZES UNDERSTANDING;RESPIRATIONS LABORED ON O2 @ 2L VIA NC, O2 SATS @ 96% AT THIS TIME;PURSED LIP BREATHING TECHNIQUE EDUCATED AND PT VERBALIZES UNDERSTANDING;I.S. PROVIDED AND PT EDUCATED ON USE 10X PER HOUR,PT DEMONSTARTES UNDERSTANDING;ABDOMEN DISTENDED/SOFT ON PALPATION AND ACTIVE IN ALL 4 QUADRANTS;WEAK PEDAL PULSES WITH +1 EDEMA NOTED,ENCOURAGED ELEVATION;TELE MONITORING IN PLACE;SKIN INTACT;#22G TO LAC FLUSHED AND PATENT,SITE APPEARS HEALTHY;PT DENIES ANY ADDITIONAL NEEDS AT THIS TIME AND IS ENCOURAGED TO CALL FOR ASSISTANCE IF NEEDED;CALL LIGHT IN REACH;WILL CONTINUE TO MONITOR
--- NOTE | 2018-09-28 11:46 | NUR ---
PT OOB RESTING IN RECLINER WITH AT BEDSIDE;RESPIRATIONS REMAIN SHALLOW ON O2 @ 2L VIA NC;PT DENIES ANY CURRENT PAIN OR DISCOMFORTS;TELE MONITORING IN PLACE;IV SITE PATENT;ASSESSMENT REMAINS UNCHANGED AT THIS TIME;PT ENCOURAGED TO CALL FOR ASSISTANCE IF NEEDED;CALL LIGHT IN REACH;WILL CONTINUE TO MONITOR
--- NOTE | 2018-09-28 13:20 | NUR ---
IV SITE TO LAC REMOVED DUE TO EXPIRATION DATE;NEW #22G STARTED TO RAC ON FIRST ATTEMPT BY THIS WRITTER,PT TOLERATED WELL.
--- NOTE | 2018-09-28 14:04 | NUR ---
S: SALLY HOLLEY is a 77 F who presents with Community acquired Pneumonia. She has a history of hypertension, dyslipidemia, COPD/Emphysemia, Paroxysmal Afib, Osteoarthritis, Recurrent Pneumonia, Remote CVA. All medications in patient's chart were reviewed. O: VS: BP 154/63 mmHg, P 73 beats/min, RR 20 breaths/min, T 97.3 F W 74 kg, HT 63 inches Scr= 0.7 mg/dL, CrCl= 66.9 ml/min Vancomycin trough = 7 A: Blood culture show no growth after 48 hours incubation. Vancomycin trough is subtherapeutic. Increase in dose warranted. P: Patient is on Azithromycin 500mg IV Q24H; Cefepime 2gm IV Q12H. Vancomycin ordered for pharmacy to dose. Increase Vancomycin to 750mg IV Q12H. Vancomycin trough is drawn before the 4th dose on 09/30/18 @ 0130. Vancomycin goal trough is between 15-20 mcg/ml. Pharmacy will follow and/or advise on antibiotics use as needed.
--- NOTE | 2018-09-28 15:41 | NUR ---
PT REMAINS OOB RESTING IN RECLINER;RESPIRATIONS EVEN AND UNLABORED ON O2 @ 2L VIA NC;PT DENIES ANY CURRENT PAIN OR NEEDS;TELE MONITORING IN PLACE;ENCOURAGED PT TO CALL FOR ASSISTANCE IF NEEDED;CALL LIGHT IN REACH;WILL CONTINUE TO MONITOR
--- NOTE | 2018-09-28 20:04 | NUR ---
PT. SITTING UP ON THE SIDE OF THE BED REPORTS BEING SLIGHLY ANXIOUS R/T DISABLED DAUGHTER AT HOME; RELAXATION TECHNIQUES IMPLEMENTED; ASSESSMENT COMPLETED; NO DISTRESS NOTED; DENIES NEEDS/PAIN. CALL LIGHT IS IN REACH.
--- NOTE | 2018-09-28 23:05 | NUR ---
PT. SITTING UP IN BED WITH TV ON WITH; NO DISTRESS NOTED; LEYDI PROVIDED PER PT'S REQUEST; ENCOURAGED TO CALL FOR ANY NEEDS; CALL LIGHT IS IN REACH;
[2018-09-29 00:11] VITALS: BP 118/53
--- NOTE | 2018-09-29 02:00 | NUR ---
RESTING IN BED WITH EYES CLOSED; AROUSES EASILY; NO DISTRESS NOTED; CPAP ON; CALL LIGHT IS IN REACH.
[2018-09-29 04:20] VITALS: BP 126/59
[2018-09-29 05:55] LABS: HEMATOCRIT 30.5 % (37.0-47.0); HEMOGLOBIN 9.4 g/dl (12.0-16.0); IMMATURE GRANULOCYTES 0.7 % (0.0-5.0); MEAN CELL VOLUME 80.9 fL CALC (80.0-100.0); MEAN CORPUSCULAR HGB 24.9 pG CALC (26.0-32.0); MEAN CORPUSCULAR HGB CONC 30.8 g/L CALC (32.0-36.0); NEUT# 10.46 thou/uL (2.00-7.15); RED BLOOD COUNT 3.77 mill/uL (4.20-5.60); RED CELL DISTRI WIDTH 15.6 % (11.5-15.5)
[2018-09-29 06:10] LABS: ALBUMIN 2.6 g/dL (3.2-5.0); ALKALINE PHOSPHATASE 70 u/l (38-126); ANION GAP 11 (6-22 (CALC)); BILIRUBIN, TOTAL 0.1 mg/dL (0.0-1.4); BUN 25 mg/dL (8-23); BUN/CREATININE RATIO 31 (12-20 (CALC)); CARBON DIOXIDE 25 mmol/l (22-30); CHLORIDE 102 mmol/l (95-108); CREATININE 0.8 mg/dL (0.5-1.0); GFR > 60 ML/MIN (>=60 (CALC)); GFR FOR AFR.AMER. > 60 ML/MIN (>=60 (CALC)); MAGNESIUM 1.7 mg/dL (1.6-2.3); POTASSIUM 4.1 mmol/l (3.5-5.1); SGOT/AST 17 u/l (9-36); SODIUM 135 mmol/l (137-146); TOTAL PROTEIN 4.8 g/dL (6.3-8.2)
--- NOTE | 2018-09-29 06:10 | NUR ---
PT. RESTING IN BED WITH EYES CLOSED; RESP EVEN AND UNLABORED; CPAP IN PLACE; CALL LIGHT IS IN REACH.
--- NOTE | 2018-09-29 07:05 | NUR ---
REPORT RECEIVED FROM ALIYA MENDIETA;PT RESTING IN SUPINE POSITION WITH HOME CPAP HOME ON;INTRODUCED SELF TO PT AND POC DISCUSSED;RESPIRATIONS SHALLOW AT THIS TIME;PT DENIES ANY CURRENT PAIN OR NEEDS;TELE MONITORING IN PLACE;ENCOURAGED TO CALL FOR ASSISTANCE IF NEEDED;CALL LIGHT IN REACH;WILL CONTINUE TO MONITOR
[2018-09-29 09:42] VITALS: BP 167/61
--- NOTE | 2018-09-29 09:50 | NUR ---
PT RESTING AT BEDSIDE WATCHING TV,A&O X3;VS OBTAINED AND ASSESSMENT COMPLETED;PT DENIES ANY CURRENT PAIN OR DISCOMFORTS,PAIN SCALE AND REPORTING EDUCATED;RESPIRATIONS SHALLOW ON O2 @ 2L VIA NC;NON-PRODUCTIVE COUGH NOTED;I.S. @ BEDSIDE AND PT RE-EDUCATED ON USE 10X PER HOUR;ABDOMEN DISTENDED/SOFT ON PALPATION AND ACTIVE IN ALL 4 QUADRANTS;WEAK PEDAL PULSES WITH +2 EDEMA NOTED TO BLE,ENCOURAGED ELEVATION;SKIN INTACT;#22G TO LAC FLUSHED AND PATENT,SITE APPEARS HEALTHY;TELE MONITORING IN PLACE;PT DENIES ANY ADDITIONAL NEEDS AT THIS TIME AND IS ENCOURAGED TO CALL FOR ASSISTANCE IF NEEDED;CALL LIGHT IN REACH;WILL CONTINUE TO MONITOR
--- NOTE | 2018-09-29 11:55 | NUR ---
PT OOB RESTING IN RECLINER EATING LUNCH; AT BEDSIDE DISCUSSING POC;RESPIRATIONS REMAIN SHALLOW ON O2 @ 2L VIA NC;PT DENIES ANY CURRENT PAIN OR NEEDS;TELE MONITORING IN PLACE;IV SITE REMAINS PATENT TO RAC;PT ENCOURAGED TO CALL FOR ASSISTANCE;CALL LIGHT IN REACH;WILL CONTINUE TO MONITOR
[2018-09-29 12:00] VITALS: BP 141/64
--- NOTE | 2018-09-29 14:36 | NUR ---
PT TRANSPORTED TO [facility] [place] AT THIS TIME IN STABLE CONDITION VIA WHEELCHAIR ACCOMPANIED BY VOLUNTEER.
--- NOTE | 2018-09-29 15:10 | NUR ---
PT RETUNED BACK TO ROOM 282 IN STABLE CONDITON VIA WHEELCHAIR.
--- NOTE | 2018-09-29 15:29 | NUR ---
PT OOB RESTING IN RECLINER WITH VISITOR AT BEDSIDE;RESPIRATIONS REMAIN SHALLOW ON O2 @ 2L VIA NC;PT DENIES ANY CURRENT PAIN OR DISCOMFORTS;TELE MONITORING IN PLACE;IV SITE TO [facility] AT [facility];INSTRUCTED TO CALL FOR ASSISTANCE IF NEEDED;CALL LIGHT IN REACH;WILL CONTINUE TO MONITOR
[2018-09-29 17:32] VITALS: BP 138/66
[2018-09-29 19:05] VITALS: BP 160/59
--- NOTE | 2018-09-29 19:29 | NUR ---
PT. SITTING UP IN RECLINER; NO DISTRESS NOTED; DENIES NEEDS/PAIN; SNACK PROVIDED; ASSESSMENT COMPLETED; PT. REPORTS FEELING BETTER TONIGHT; EDEMA NOTED TO BLE SLIGHTLY GREATER TO LLE; ENCOURAGED TO KEEP BLE ELEVATED; VERBLAIZES UNDERSTANDING; ENCOURAGED TO CALL FOR ANY NEEDS; CALL LIGHT IS IN REACH; WILL CONTINUE TO MONITOR.
--- NOTE | 2018-09-29 22:15 | NUR ---
PT. C/O LLE PAIN 09/12; PULSE CHECKED AND PRESENT; NO REDNESS NOTED TO EXTREMETY; MEDICATED WITH ORDERED PRN TYLENOL; WILL REASSESS;
--- NOTE | 2018-09-29 23:50 | NUR ---
PT. RESTING IN BED WITH EYES CLOSED; CPAP IN PLACE; RESP. EVEN AND UNLABORED;CALL LIGHT IS IN REACH. WILL CONTINUE TO MONITOR.
[2018-09-30 00:10] VITALS: BP 140/76
--- NOTE | 2018-09-30 02:06 | NUR ---
PT. RESTING IN BED WITH CPAP ON; NO DISTRESS NOTED; RESP EVEN AND UNLABORED; DENIES NEEDS/PAIN; ENCOURAGED TO CALL FOR ANY NEEDS; CALL LIGHT IS IN REACH.
[2018-09-30 04:05] VITALS: BP 138/67
[2018-09-30 05:05] LABS: HEMATOCRIT 30.1 % (37.0-47.0); HEMOGLOBIN 9.4 g/dl (12.0-16.0); IMMATURE GRANULOCYTES 0.8 % (0.0-5.0); MEAN CELL VOLUME 79.8 fL CALC (80.0-100.0); MEAN CORPUSCULAR HGB 24.9 pG CALC (26.0-32.0); MEAN CORPUSCULAR HGB CONC 31.2 g/L CALC (32.0-36.0); NEUT# 8.05 thou/uL (2.00-7.15); RED BLOOD COUNT 3.77 mill/uL (4.20-5.60); RED CELL DISTRI WIDTH 15.5 % (11.5-15.5)
[2018-09-30 05:15] LABS: ALBUMIN 2.5 g/dL (3.2-5.0); ALKALINE PHOSPHATASE 67 u/l (38-126); ANION GAP 10 (6-22 (CALC)); BILIRUBIN, TOTAL 0.2 mg/dL (0.0-1.4); BUN 25 mg/dL (8-23); BUN/CREATININE RATIO 33 (12-20 (CALC)); CARBON DIOXIDE 28 mmol/l (22-30); CHLORIDE 100 mmol/l (95-108); CREATININE 0.7 mg/dL (0.5-1.0); GFR > 60 ML/MIN (>=60 (CALC)); GFR FOR AFR.AMER. > 60 ML/MIN (>=60 (CALC)); MAGNESIUM 1.7 mg/dL (1.6-2.3); SGOT/AST 18 u/l (9-36); SODIUM 135 mmol/l (137-146); TOTAL PROTEIN 4.7 g/dL (6.3-8.2)
--- NOTE | 2018-09-30 05:35 | NUR ---
PT. RESTING IN BED WITH EYES CLOSED; CPAP IN PLACE; RESP. EVEN AND UNLABORED; CALL LIGHT IS IN REACH; WILL CONTINUE TO MONITOR.
--- NOTE | 2018-09-30 07:10 | NUR ---
PT REPORT RECIEVED FROM ALIYA MENDIETA. PT SITTING ON SIDE OF BED. NO S/S OF DISTRESS. CALL LIGHT IN REACH. WILL CONTINUE TO MONITOR.
[2018-09-30 09:36] VITALS: BP 152/61
--- NOTE | 2018-09-30 09:36 | NUR ---
PT A/O X3. PT HAS EXERTIONAL SOB. RESP EVEN AND UNLABORED. LUNG SOUNDS COARSE. TELE IN PLACE. NONPRODUCTIVE COUGH NOTED. O2 @2L ON PT. BOWEL SOUNDS ACTIVE X4. STRONG RADIAL AND PEDAL PULSES. +2 EDEMA TO RT LE, +3 EDEAM TO LT LE. ELEVATED BLE ON A PILLOW. #22 RAC IV REMOVED DUE TO LEAKING. CATHETER INTACT. #22 LAC NEW IV START BY SERVER MANAGER @1000. FLUSHED AND PATENT. SITE APPEARS HEALTHY. SKIN INTACT. PT DENIES ANY PAIN OR NEEDS. POC DISCUSSED. SAFETY PRECAUTIONS IN PLACE. CALL LIGHT IN REACH. WILL CONTINUE TO MONITOR.
--- NOTE | 2018-09-30 12:36 | NUR ---
PT SITTING IN BED EATING LUNCH. TELE IN PLACE. O2 @2L ON PT. NO C/O PAIN OR NEEDS. CALL LIGHT IN REACH. BSC NEAR BED. WILL CONTINUE TO MONITOR.
[2018-09-30 13:28] VITALS: BP 150/63
--- NOTE | 2018-09-30 16:13 | NUR ---
PT SITTING IN RECLINER. NO C/O PAIN OR NEEDS. O2 @2L ON PT. CALL LIGHT IN REACH. WILL CONTINUE TO MONITOR.
[2018-09-30 16:25] VITALS: BP 162/62
[2018-09-30 20:00] VITALS: BP 147/70
--- NOTE | 2018-09-30 21:19 | NUR ---
PT MEDICATED ORDERS PROVIDE, DENIES ANY OTHER NEEDS AT THIS TIME. PT ASSESSED, LUNG SOUNDS ARE COURSE POSTERIOR/CLEAR ANTERIOR, 1+ EDEMA TO BLE. LOCX4. CALL LIGHT AT BEDSIDE.
[2018-10-01 00:45] VITALS: BP 141/71
--- NOTE | 2018-10-01 02:05 | NUR ---
PT IS SLEEPING, BUT AWOKE TO MY ENTERING ROOM. CPAP IS ON. NO S/O DISTRESS, DENIES ANY NEEDS. CALL LIGHT AT SIDE.
--- NOTE | 2018-10-01 03:40 | NUR ---
PT IS SLEEPING W/CPAP ON AT THIS TIME. NO S/O DISTRESS. CALL LIGHT AT SIDE.
[2018-10-01 05:02] VITALS: BP 148/76
[2018-10-01 05:10] LABS: HEMOGLOBIN 9.6 g/dl (12.0-16.0); IMMATURE GRANULOCYTES 1.1 % (0.0-5.0); MEAN CELL VOLUME 79.5 fL CALC (80.0-100.0); MEAN CORPUSCULAR HGB 24.6 pG CALC (26.0-32.0); NEUT# 7.82 thou/uL (2.00-7.15); RED BLOOD COUNT 3.9 mill/uL (4.20-5.60); RED CELL DISTRI WIDTH 15.7 % (11.5-15.5)
--- NOTE | 2018-10-01 05:25 | NUR ---
RESPIRATORY IN W/PT FOR TREATMENT, PT REPORTS WANTING TO BE LEFT ALONE TO SLEEP THIS MORNING. CALL LIGHT IS AT SIDE.
[2018-10-01 05:30] LABS: ALBUMIN 2.6 g/dL (3.2-5.0); ALKALINE PHOSPHATASE 70 u/l (38-126); ANION GAP 10 (6-22 (CALC)); BILIRUBIN, TOTAL 0.2 mg/dL (0.0-1.4); BUN 28 mg/dL (8-23); BUN/CREATININE RATIO 43 (12-20 (CALC)); CARBON DIOXIDE 29 mmol/l (22-30); CHLORIDE 100 mmol/l (95-108); CREATININE 0.7 mg/dL (0.5-1.0); GFR > 60 ML/MIN (>=60 (CALC)); GFR FOR AFR.AMER. > 60 ML/MIN (>=60 (CALC)); MAGNESIUM 1.7 mg/dL (1.6-2.3); POTASSIUM 3.9 mmol/l (3.5-5.1); SGOT/AST 21 u/l (9-36); SODIUM 135 mmol/l (137-146); TOTAL PROTEIN 4.8 g/dL (6.3-8.2)
--- NOTE | 2018-10-01 07:05 | NUR ---
PT REPORT RECIEVED FROM ALIYA DUENAS. PT SLEEPING. NO S/S OF DISTRESS. CALL LIGHT IN REACH. WILL CONTINUE TO MONITOR.
[2018-10-01 07:25] VITALS: BP 178/66
--- NOTE | 2018-10-01 07:25 | NUR ---
PT A/O X3. RESP EVEN AND UNLABORED. AUDIBLE WHEEZES NOTED. LUNG SOUNDS COARSE. NONPRODUCTIVE COUGH NOTED. O2 @2L ON PT. BOWEL SOUNDS ACTIVE X4. STRONG RADIAL AND PEDAL PULSES. +1 EDEMA NOTED TO BILATERAL ANKLES/FEET. #22 LAC SL. FLUSHED AND PATENT. SITE APPEARS HEALTHY. SKIN INTACT. PT DENIES ANY PAIN OR NEEDS. POC DISCUSSED. SAFETY PRECAUTIONS IN PLACE. CALL LIGHT IN REACH. WILL CONTINUE TO MONITOR.
[2018-10-01 11:10] VITALS: BP 130/60
--- NOTE | 2018-10-01 12:10 | NUR ---
PT SITTING IN RECLINER. NO C/O PAIN OR NEEDS. O2 @2L ON PT. CALL LIGHT IN REACH. WILL CONTINUE TO MONITOR.
[2018-10-01] MEDS ORDERED: DIFLUCAN100 M1 PO (12:24)
[2018-10-01] MEDS ORDERED: LEVAQUIN750 M1 PO (12:26)
--- NOTE | 2018-10-01 13:19 | NUR ---
D/C INSTRUCTIONS DISCUSSED W/ PT. PT STATES UNDERSTANDING. IV REMOVED. CATHETER INTACT. TELE REMOVED. PT GETTING DRESSED AT THIS TIME.
--- NOTE | 2018-10-01 13:30 | NUR ---
Discharge instructions given. Patient verbalizes understanding of same. Discharged in stable condition via Wheelchair to Home with family. All belongings sent with pt.
== END 2018-10-01 13:28 | disposition home or self-care (01) | DRG 177 ==
LOC: ED 13:16 → ED-I 16:08 → ED 16:24 → MS2 16:25
PROVIDERS: Nurse Practitioner Family; ADMIT Internal Medicine Nephrology; ATTEND Internal Medicine
DX: B37.1 Pulmonary candidiasis (principal); J18.9 Pneumonia, unspecified organism; J96.21 Acute and chronic respiratory failure with hypoxia; I50.31 Acute diastolic (congestive) heart failure; J44.1 Chronic obstructive pulmonary disease with (acute) exacerbation; E87.1 Hypo-osmolality and hyponatremia; J44.0 Chronic obstructive pulmonary disease with (acute) lower respiratory infection; I11.0 Hypertensive heart disease with heart failure; E87.6 Hypokalemia; E78.5 Hyperlipidemia, unspecified; I48.0 Paroxysmal atrial fibrillation; M19.90 Unspecified osteoarthritis, unspecified site; G47.33 Obstructive sleep apnea (adult) (pediatric); I49.1 Atrial premature depolarization; D64.9 Anemia, unspecified; M94.0 Chondrocostal junction syndrome [Tietze]; F32.9 Major depressive disorder, single episode, unspecified; F41.9 Anxiety disorder, unspecified; R19.5 Other fecal abnormalities; Z87.891 Personal history of nicotine dependence; Z79.01 Long term (current) use of anticoagulants; Z79.82 Long term (current) use of aspirin; Z86.73 Personal history of transient ischemic attack (TIA), and cerebral infarction without residual deficits; Z87.01 Personal history of pneumonia (recurrent)
CPT/HCPCS: G0378; J0692; J1756; J3370

== ENCOUNTER 2018-10-04 09:57 | Inpatient (IN) | payer MEDICARE ==
[~2018-10-04] VITALS: Ht 160 cm; Wt 75.0 kg
[~2018-10-04 09:57] MED LIST changes: +ATORVASTATIN CA20 MG PO; +CARDIZEM CD120 MG PO; +DIFLUCAN100 M1 PO; +LEVAQUIN750 M1 PO
--- NOTE | 2018-10-04 09:57 | NUR ---
PATIENT ARRIVES TO ED VIA EMS ON 4L OF O2 VIA NASAL CANNULA. ALERT AND ORIENTED X3. AT BEDSIDE.
[2018-10-04 10:29] LABS: HEMATOCRIT 35.2 % (37.0-47.0); HEMOGLOBIN 10.9 g/dl (12.0-16.0); IMMATURE GRANULOCYTES 1.2 % (0.0-5.0); MEAN CELL VOLUME 79.8 fL CALC (80.0-100.0); MEAN CORPUSCULAR HGB 24.7 pG CALC (26.0-32.0); NEUT# 10.22 thou/uL (2.00-7.15); RED BLOOD COUNT 4.41 mill/uL (4.20-5.60); RED CELL DISTRI WIDTH 15.8 % (11.5-15.5)
[2018-10-04] MEDS ORDERED: PREDNISONE5 MG PO (10:36)
[2018-10-04 11:15] LABS: ANION GAP 9 (6-22 (CALC)); BUN 19 mg/dL (8-23); BUN/CREATININE RATIO 25 (12-20 (CALC)); CARBON DIOXIDE 33 mmol/l (22-30); CHLORIDE 97 mmol/l (95-108); CREATININE 0.7 mg/dL (0.5-1.0); GFR > 60 ML/MIN (>=60 (CALC)); GFR FOR AFR.AMER. > 60 ML/MIN (>=60 (CALC)); POTASSIUM 3.4 mmol/l (3.5-5.1); SODIUM 136 mmol/l (137-146)
--- NOTE | 2018-10-04 11:37 | NUR ---
PT UPDATED ON RESULTS THEY HAVE COME KNOWN. PT STATES THAT SHE FEELS WEAK, NOT IMPROVED SINCE HER DISCHARGE FROM HOSPITAL 2 DAYS AGO.
--- NOTE | 2018-10-04 12:57 | NUR ---
PT UP TO BSC, SEEN TO DESAT WITH MINIMAL EXERTION, DOWN TO 88%. PT RECOVERS WITHIN A MINUTE. AWAITING CALL FROM NURSE RECEIVING REPORT.
[2018-10-04 13:24] VITALS: BP 155/79
--- NOTE | 2018-10-04 13:24 | NUR ---
PT TAKEN TO ROOM 278 WITHOUT INCIDENT, REPORT WAS TO JUJU.
--- NOTE | 2018-10-04 13:26 | NUR ---
REPORT RECEIVED FROM OLIVE IN ED, PT ARRIVED ON UNIT @ 1325 VIA STRETCHER, TRANSFERRED TO BED. ALERT AND ORIENTED X 4, ORIENTED TO ROOM AND CALL MARTINEZ, O2 @ 3L VIA NC IN PLACE, TELE MONITOR IN PLACE, VITAL SIGNS MEASURED AND RECORDED.
[2018-10-04 15:14] VITALS: BP 124/74
--- NOTE | 2018-10-04 16:00 | NUR ---
RESTING IN BED, DR NUGENT ROUNDED AND DISCUSSED PLAN OF CARE, PT STATED INDERSTANDING.
--- NOTE | 2018-10-04 19:00 | NUR ---
RECEIVED REPORT FROM NURSE JUJU PATIENT RESTING IN BED ON O2 AT 3LPM, CALL LIGHT WITHIN REACH
[2018-10-04 19:03] VITALS: BP 164/66
--- NOTE | 2018-10-04 20:30 | NUR ---
PATIENT RESTING IN BED EYES CLOSED REMAINS ON O2 AT 3LPM EVEN UNLABORED BREATHING NOTED TO HAVE CRACKLES ON BOTH LUNG JACKMAN, NON PRODUCTIVE COUGH, ON TELE SR WITH SA WITH PVC'S 80, WITH SALINE LOCK G18 ON LAC, LAST BM 10/04, CALL LIGHT WITHIN REACH.
[2018-10-04 23:51] VITALS: BP 146/70
--- NOTE | 2018-10-05 01:49 | NUR ---
RECEIVED A PHONE CALL FROM ED PT WAS HAVING SINUS ARRYTHMIA, ASSESSED PT DENIES PAIN OR DISCOMFORT V/S FOLLOWS: BP131/72 P84 R20 O2 SAT @94% VIA CPAP, PLACE ORDER FOR EKG.
[2018-10-05 04:03] VITALS: BP 154/76
[2018-10-05 05:41] LABS: HEMATOCRIT 31.6 % (37.0-47.0); HEMOGLOBIN 9.8 g/dl (12.0-16.0); IMMATURE GRANULOCYTES 0.7 % (0.0-5.0); MEAN CORPUSCULAR HGB 24.8 pG CALC (26.0-32.0); NEUT# 3.84 thou/uL (2.00-7.15); RED BLOOD COUNT 3.95 mill/uL (4.20-5.60); RED CELL DISTRI WIDTH 15.6 % (11.5-15.5)
[2018-10-05 05:43] LABS: ALBUMIN 2.6 g/dL (3.2-5.0); ALKALINE PHOSPHATASE 86 u/l (38-126); AMYLASE 42 u/l (30-110); ANION GAP 10 (6-22 (CALC)); BILIRUBIN, TOTAL 0.5 mg/dL (0.0-1.4); BUN 19 mg/dL (8-23); BUN/CREATININE RATIO 31 (12-20 (CALC)); CARBON DIOXIDE 32 mmol/l (22-30); CHLORIDE 98 mmol/l (95-108); CREATININE 0.6 mg/dL (0.5-1.0); GFR > 60 ML/MIN (>=60 (CALC)); GFR FOR AFR.AMER. > 60 ML/MIN (>=60 (CALC)); LIPASE 65 u/l (23-300); MAGNESIUM 1.9 mg/dL (1.6-2.3); SGOT/AST 30 u/l (9-36); SODIUM 136 mmol/l (137-146); TOTAL PROTEIN 4.9 g/dL (6.3-8.2)
[2018-10-05 05:48] LABS: POTASSIUM 4.1 mmol/l (3.5-5.1)
--- NOTE | 2018-10-05 06:41 | NUR ---
CALLED DR. BREWER AND INFORMED OF THE TELE READING SINUS ARRYTHMIA AND THE EKG READING, INFORMED PT WAS ASYMPTOMATIC AND THE V/S. NO NEW ORDERS MADE. PATIENT CURRENTLY RESTING IN BED PT STILL ON CPAP, CALL LIGHT AT REACH.
--- NOTE | 2018-10-05 07:05 | NUR ---
PT REPORT RECIEVED FROM ALIYA BARNES. PT RESTING, NO S/S OF DISTRESS. CALL LIGHT IN REACH. WILL CONTINUE TO MONITOR.
[2018-10-05 08:42] VITALS: BP 141/57
[2018-10-05 08:47] VITALS: BP 141/57
--- NOTE | 2018-10-05 11:16 | NUR ---
PT LYING IN BED. NO C/O PAIN OR NEEDS. O2 @3L ON PT. CALL LIGHT IN REACH. WILL CONTINUE TO MONITOR.
--- NOTE | 2018-10-05 13:38 | NUR ---
Discharge instructions given. Patient verbalizes understanding of same. Discharged in stable condition via Medical Transport to *Other with [facility] staff. All belongings sent with pt.
--- NOTE | 2018-10-05 14:02 | NUR ---
PT REPORT GIVEN TO ALIYA GAYTAN AT [facility]
== END 2018-10-05 13:45 | DRG 193 ==
LOC: ED 09:57 → ED-I 11:21 → ED 11:56 → MS2 11:57
PROVIDERS: Family Medicine; ADMIT Internal Medicine Nephrology; ATTEND Internal Medicine Nephrology
DX: J18.9 Pneumonia, unspecified organism (principal); J96.21 Acute and chronic respiratory failure with hypoxia; I50.31 Acute diastolic (congestive) heart failure; J44.1 Chronic obstructive pulmonary disease with (acute) exacerbation; J44.0 Chronic obstructive pulmonary disease with (acute) lower respiratory infection; I11.0 Hypertensive heart disease with heart failure; E78.5 Hyperlipidemia, unspecified; I48.0 Paroxysmal atrial fibrillation; D63.8 Anemia in other chronic diseases classified elsewhere; M19.90 Unspecified osteoarthritis, unspecified site; G47.33 Obstructive sleep apnea (adult) (pediatric); F41.9 Anxiety disorder, unspecified; F32.9 Major depressive disorder, single episode, unspecified; K21.9 Gastro-esophageal reflux disease without esophagitis; Z87.01 Personal history of pneumonia (recurrent); Z86.73 Personal history of transient ischemic attack (TIA), and cerebral infarction without residual deficits; Z87.891 Personal history of nicotine dependence; Z79.01 Long term (current) use of anticoagulants
CPT/HCPCS: G0378

== ENCOUNTER 2020-06-26 14:07 | Emergency (ER) | payer MEDICARE ==
[~2020-06-26] VITALS: Ht 160 cm; Wt 75.0 kg
[~2020-06-26 14:07] MED LIST changes: +PREDNISONE5 MG PO
[2020-06-26] MEDS ORDERED: HYDROCHLOROT25 MG PO (14:33)
[2020-06-26] MEDS ORDERED: TRAMADOL HCL50 MG PO (15:56)
[2020-06-26] MEDS ORDERED: STERAPRED DS10 MG PO (15:56)
[2020-06-26 16:01] VITALS: BP 159/67
== END 2020-06-26 16:06 | disposition home or self-care (01) ==
LOC: ED 14:07
DX: M47.22 Other spondylosis with radiculopathy, cervical region (principal); I10 Essential (primary) hypertension; J44.9 Chronic obstructive pulmonary disease, unspecified; I48.91 Unspecified atrial fibrillation; Z86.73 Personal history of transient ischemic attack (TIA), and cerebral infarction without residual deficits

== ENCOUNTER 2020-12-26 13:55 | Observation (INO) | payer MEDICARE ==
[~2020-12-26] VITALS: Ht 160 cm; Wt 80.0 kg
[~2020-12-26 13:55] MED LIST changes: +HYDROCHLOROT25 MG PO; +STERAPRED DS10 MG PO; +TRAMADOL HCL50 MG PO
--- NOTE | 2020-12-26 13:55 | NUR ---
PT TO ROOM WITH STEADY GAIT
--- NOTE | 2020-12-26 14:55 | NUR ---
RESTING ON STRETCHER. CALL MARTINEZ WITHIN REACH.
[2020-12-26 15:07] LABS: HEMATOCRIT 36.4 % (37.0-47.0); HEMOGLOBIN 11.4 g/dl (12.0-16.0); IMMATURE GRANULOCYTES 0.4 % (0.0-5.0); MEAN CELL VOLUME 81.3 fL CALC (80.0-100.0); MEAN CORPUSCULAR HGB 25.4 pG CALC (26.0-32.0); MEAN CORPUSCULAR HGB CONC 31.3 g/dL CAL (32.0-36.0); NEUT# 10.96 thou/uL (2.00-7.15); RED BLOOD COUNT 4.48 mill/uL (4.20-5.60); RED CELL DISTRI WIDTH 21.4 % (11.5-15.5)
[2020-12-26 15:18] LABS: ALKALINE PHOSPHATASE 113 u/l (38-126); ANION GAP 13 (6-22 (CALC)); BUN 13 mg/dL (8-23); BUN/CREATININE RATIO 15 (12-20 (CALC)); CARBON DIOXIDE 28 mmol/l (22-30); CHLORIDE 99 mmol/l (95-108); CREATININE 0.9 mg/dL (0.5-1.0); GFR > 60 ML/MIN (>=60 (CALC)); GFR FOR AFR.AMER. > 60 ML/MIN (>=60 (CALC)); POTASSIUM 3.4 mmol/l (3.5-5.1); SGOT/AST 23 u/l (9-36); SODIUM 137 mmol/l (137-146)
[2020-12-26 15:23] LABS: ALBUMIN 3.7 g/dL (3.2-5.0); BILIRUBIN, TOTAL 0.2 mg/dL (0.0-1.4); TOTAL PROTEIN 6.8 g/dL (6.3-8.2)
--- NOTE | 2020-12-26 15:45 | NUR ---
RESTING ON STRETCHER. DENIES COMPLAINTS. CALL MARTINEZ WITHIN REACH
--- NOTE | 2020-12-26 16:45 | NUR ---
RESTING ON STRETCHER SITTING AT SIDE OF BED TALKING ON PHONE. CALL MARTINEZ WITHIN REACH
--- NOTE | 2020-12-26 17:45 | NUR ---
RESTING ON STRETCHER. CALL MARTINEZ WITHIN REACH. FOOD TRAY SERVED. PT SITTING UP IN BED EATING
--- NOTE | 2020-12-26 18:07 | NUR ---
REPORT TO ALIYA HAJI. PT TO BE TRANSFERRED TO FLOOR WITH RN ON TELE
[2020-12-26 18:15] VITALS: BP 146/69
--- NOTE | 2020-12-26 18:20 | NUR ---
RECEIVED PATIENT TO THE FLOOR AT THIS TIME. ROOM ORIENTATION GIVEN. CPAP AND O2 BEING SET UP BY RESPIRATORY. PATIENT DENEIS ANY PAIN TELE MONITOR IN PLACE. IV PATENT.
--- NOTE | 2020-12-26 19:39 | NUR ---
PT SITTING ON SIDE OF THE BED. REPORTS FEELING BETTER, BUT STILL FEELS PRESSURE IN HER CHEST AND IS COUGHING WITH SORE THROAT. ED CALLED TO REPORT THAT SHE NEEDS A BATTERY CHANGE, THERE WERE NO BATTERIES IN [employer] [facility] [facility], BATTERIES ADDED AT THIS TIME. KLEENEX AND PILLOWS ALONG WITH BLANKET PROVIDED FOR PT'S COMFORT. PT DENIES ANY OTHER NEEDS AT THIS TIME.
--- NOTE | 2020-12-26 20:46 | NUR ---
PT MEDICATED ORDERS PROVIDE, PT IS IN HIGH FOWLERS IN THE BED. POC DISCUSSED ALONG WITH SYMPTOM REPORTING. LUNG SOUNDS ARE COURSE, PT LOCX4, PT IS WEARING HER CPAP. C/O INDEGESTION, ORDERS RECEIVED AND WILL MEDICATE WHEN MEDIATION BECOMES AVAILABLE. PT ALSO ASKED FOR HER XERALTO, REPORTED THAT SHE TAKES IT AT NIGHT/BEDTIME AND HAS NOT TAKEN IT THIS DAY. WILL NOTIFY PHARMACY
--- NOTE | 2020-12-26 21:54 | NUR ---
PT MEDICATED ORDERS PROVIDE AND FOR INDIGESTION. DENIES ANY OTHER NEEDS.
--- NOTE | 2020-12-27 00:15 | NUR ---
LAB IS IN WITH PT OBTAINING L.A. DRAW.
--- NOTE | 2020-12-27 01:40 | NUR ---
PT SLEEPING AT THIS TIME. NO S/O DISTRESS AT THIS TIME. CALL LIGHT AT SIDE.
[2020-12-27 04:04] VITALS: BP 138/70
--- NOTE | 2020-12-27 05:45 | NUR ---
PT SLEEPING, RESP EVEN NON-LABORED.
--- NOTE | 2020-12-27 07:00 | NUR ---
PT REPORT RECEIVED FROM NIGHT NURSE. YULISSA
[2020-12-27] MEDS ORDERED: OMEPRAZOLE DR40 MG PO (07:50)
[2020-12-27] MEDS ORDERED: TRELEGY ELLIPTA1 AER IN (07:51)
--- NOTE | 2020-12-27 08:00 | NUR ---
PT WAS FOUND RESTING IN BED;PT IS A&OX3;VS AND ASSESSMENT WERE COMPLETED;HEART SOUNDS ARE REGULAR IN RATE & RHYTHM AT THIS TIME;TELE IS IN PLACE;LUNG SOUNDS ARE COARSE;RESPIRATIONS ARE EVEN AND UNLABORED ON O2@2L VIA NC;#20G IV IN LAC IS SL,PATENT AND APPEARS FREE OF COMPLICATIONS AT THIS TIME;SAFETY PRECAUTIONS IN PLACE;CALL LIGHT WITHIN REACH;PT ENCOURAGED TO CALL WITH ANY NEEDS OR CONCERNS;BED IN LOWEST POSITION;WILL CONTINUE TO MONITOR.
[2020-12-27 08:05] VITALS: BP 153/75
[2020-12-27 09:08] VITALS: BP 153/75
[2020-12-27 09:40] LABS: HEMATOCRIT 33.8 % (37.0-47.0); HEMOGLOBIN 10.6 g/dl (12.0-16.0); IMMATURE GRANULOCYTES 0.2 % (0.0-5.0); MEAN CELL VOLUME 80.9 fL CALC (80.0-100.0); MEAN CORPUSCULAR HGB 25.4 pG CALC (26.0-32.0); MEAN CORPUSCULAR HGB CONC 31.4 g/dL CAL (32.0-36.0); NEUT# 5.36 thou/uL (2.00-7.15); RED BLOOD COUNT 4.18 mill/uL (4.20-5.60); RED CELL DISTRI WIDTH 21.1 % (11.5-15.5)
[2020-12-27 10:19] LABS: ANION GAP 11 (6-22 (CALC)); BUN 15 mg/dL (8-23); BUN/CREATININE RATIO 22 (12-20 (CALC)); CARBON DIOXIDE 28 mmol/l (22-30); CHLORIDE 100 mmol/l (95-108); CREATININE 0.7 mg/dL (0.5-1.0); GFR > 60 ML/MIN (>=60 (CALC)); GFR FOR AFR.AMER. > 60 ML/MIN (>=60 (CALC)); SODIUM 135 mmol/l (137-146)
[2020-12-27] MEDS ORDERED: PREDNISONE10 MG PO (11:32)
[2020-12-27] MEDS ORDERED: OMNICEF300 MG PO (11:32)
--- NOTE | 2020-12-27 12:00 | NUR ---
PT WAS FOUND RESTING IN BED EATING LUNCH;TELE IS IN PLACE;O2@2L VIA NC IS IN PLACE;SAFETY PRECAUTIONS IN PLACE;CALL LIGHT WITHIN REACH;WILL CONTINUE TO MONITOR.
--- NOTE | 2020-12-27 14:43 | NUR ---
Discharge instructions given. Patient verbalizes understanding of same. Discharged in stable condition via Wheelchair to Home with . All belongings sent with pt. DISCHARGE PACKET GIVEN TO PT;DISCHARGE INSTRUCTIONS AND MEDICATIONS WERE EXPLAINED TO PT;PT EXPRESSED UNDERSTANDING AND HAD NO FURTHER QUESTIONS;SIGNATURE WAS OBTAINED;PT WILL BE TRANSPORTED HOME WITH SELF ALONE;TELE WAS REMOVED;IV WAS REMOVED WITHOUT COMPLICATIONS AND CATHETER INTACT; PT WAS TRANSPORTED IN STABLE CONDITION VIA WC TO [facility];ALL PT BELONGINGS WERE SENT WITH PT;PT WILL BE DRIVING HERSELF HOME DUE TO TRANSPORTING HERSELF HERE TO THE ED PRIOR TO ADMISSION
== END 2020-12-27 14:43 | disposition home or self-care (01) ==
LOC: ED 13:55 → ED-I 14:30 → ED 15:48 → MS2 15:49
PROVIDERS: Family Medicine; Nurse Practitioner; ADMIT Internal Medicine; ATTEND Internal Medicine
DX: J43.9 Emphysema, unspecified (principal); J18.9 Pneumonia, unspecified organism; E87.6 Hypokalemia; I11.0 Hypertensive heart disease with heart failure; I50.9 Heart failure, unspecified; I48.0 Paroxysmal atrial fibrillation; E78.5 Hyperlipidemia, unspecified; F41.9 Anxiety disorder, unspecified; F32.9 Major depressive disorder, single episode, unspecified; Z87.01 Personal history of pneumonia (recurrent); Z86.73 Personal history of transient ischemic attack (TIA), and cerebral infarction without residual deficits; Z20.822 Contact with and (suspected) exposure to COVID-19; G47.33 Obstructive sleep apnea (adult) (pediatric); Z87.891 Personal history of nicotine dependence
CPT/HCPCS: G0378

== ENCOUNTER 2021-01-25 18:34 | Emergency (ER) | payer MEDICARE ==
[~2021-01-25] VITALS: Ht 160 cm; Wt 76.4 kg
[~2021-01-25 18:34] MED LIST changes: +OMEPRAZOLE DR40 MG PO; +OMNICEF300 MG PO; +PREDNISONE10 MG PO; +TRELEGY ELLIPTA1 AER IN
[2021-01-25] MEDS ORDERED: ALBUTEROL SUL0.083 % IN (18:57)
[2021-01-25] MEDS ORDERED: PEPCID20 MG PO (19:54)
[2021-01-25] MEDS ORDERED: MEDDOSEPAK PO (19:54)
[2021-01-25 20:12] VITALS: BP 141/81
== END 2021-01-25 20:12 | disposition home or self-care (01) ==
LOC: ED 18:34
DX: L50.0 Allergic urticaria (principal); I10 Essential (primary) hypertension; F41.9 Anxiety disorder, unspecified; J44.9 Chronic obstructive pulmonary disease, unspecified; I48.91 Unspecified atrial fibrillation; Z86.73 Personal history of transient ischemic attack (TIA), and cerebral infarction without residual deficits

== ENCOUNTER 2021-05-05 21:55 | Emergency (ER) | payer MEDICARE ==
[~2021-05-05] VITALS: Ht 160 cm; Wt 75.0 kg
[~2021-05-05 21:55] MED LIST changes: +MEDDOSEPAK PO; +PEPCID20 MG PO
[2021-05-05] MEDS ORDERED: LASIX 40 MG TAB40 MG PO (22:33)
[2021-05-05 22:51] LABS: HEMATOCRIT 31.2 % (37.0-47.0); HEMOGLOBIN 9.7 g/dl (12.0-16.0); IMMATURE GRANULOCYTES 0.4 % (0.0-5.0); MEAN CELL VOLUME 84.3 fL CALC (80.0-100.0); MEAN CORPUSCULAR HGB 26.2 pG CALC (26.0-32.0); MEAN CORPUSCULAR HGB CONC 31.1 g/dL CAL (32.0-36.0); NEUT# 6.29 thou/uL (2.00-7.15); RED BLOOD COUNT 3.7 mill/uL (4.20-5.60); RED CELL DISTRI WIDTH 16.9 % (11.5-15.5)
[2021-05-05 23:06] LABS: PROTHROMBIN TIME 10.7 SECONDS (9.0-12.5)
[2021-05-05 23:07] LABS: ALBUMIN 3.5 g/dL (3.2-5.0); ALKALINE PHOSPHATASE 91 u/l (38-126); ANION GAP 9 (6-22 (CALC)); BUN 16 mg/dL (8-23); BUN/CREATININE RATIO 17 (12-20 (CALC)); CARBON DIOXIDE 28 mmol/l (22-30); CHLORIDE 103 mmol/l (95-108); CREATININE 0.9 mg/dL (0.5-1.0); GFR > 60 ML/MIN (>=60 (CALC)); GFR FOR AFR.AMER. > 60 ML/MIN (>=60 (CALC)); POTASSIUM 3.8 mmol/l (3.5-5.1); SGOT/AST 21 u/l (9-36); SODIUM 137 mmol/l (137-146); TOTAL PROTEIN 6.1 g/dL (6.3-8.2)
[2021-05-05 23:09] LABS: BILIRUBIN, TOTAL 0.3 mg/dL (0.0-1.4)
[2021-05-05 23:19] LABS: MYOGLOBIN 51 ng/mL (0 - 62)
[2021-05-05 23:35] VITALS: BP 157/74
[2021-05-05] MEDS ORDERED: ONDANSETRON4 MG PO (23:35)
[2021-05-05] MEDS ORDERED: MECLIZINE25 MG PO (23:35)
== END 2021-05-05 23:54 | disposition home or self-care (01) ==
LOC: ED 21:55
PROVIDERS: Emergency Medicine
DX: R42 Dizziness and giddiness (principal); I11.0 Hypertensive heart disease with heart failure; I50.9 Heart failure, unspecified; I48.91 Unspecified atrial fibrillation; J44.9 Chronic obstructive pulmonary disease, unspecified; F41.9 Anxiety disorder, unspecified; Z79.01 Long term (current) use of anticoagulants; Z86.73 Personal history of transient ischemic attack (TIA), and cerebral infarction without residual deficits; Z20.822 Contact with and (suspected) exposure to COVID-19

== ENCOUNTER 2022-01-21 14:31 | Observation (INO) | payer MEDICARE ==
[2022-01-21] VITALS (28 sets, daily range): BP systolic 92–146; BP diastolic 43–66
[~2022-01-21] VITALS: Ht 160 cm; Wt 72.0 kg
[~2022-01-21 14:31] MED LIST changes: +LASIX 40 MG TAB40 MG PO; +MECLIZINE25 MG PO; +ONDANSETRON4 MG PO
--- NOTE | 2022-01-21 14:33 | NUR ---
PT TO ROOM WITH STEADY GAIT
--- NOTE | 2022-01-21 14:51 | NUR ---
CARDIZEM DRIP STARTED AT 1451. IV PUSH OF 10 MG ADMINISTERED PER PROVIDER INSTRUCTION. DRIP STARTED AT 10 MG/HR.
[2022-01-21 15:04] LABS: HEMATOCRIT 27.7 % (37.0-47.0); HEMOGLOBIN 8.4 g/dl (12.0-16.0); IMMATURE GRANULOCYTES 0.2 % (0.0-5.0); MEAN CORPUSCULAR HGB 21.8 pG CALC (26.0-32.0); MEAN CORPUSCULAR HGB CONC 30.3 g/dL CAL (32.0-36.0); NEUT# 13.8 thou/uL (2.00-7.15); RED BLOOD COUNT 3.85 mill/uL (4.20-5.60); RED CELL DISTRI WIDTH 18.1 % (11.5-15.5)
[2022-01-21 15:06] LABS: MEAN CELL VOLUME 71.9 fL CALC (80.0-100.0)
[2022-01-21 15:16] LABS: ALBUMIN 3.6 g/dL (3.2-5.0); ALKALINE PHOSPHATASE 89 u/l (38-126); ANION GAP 9 (6-22 (CALC)); BILIRUBIN, TOTAL 0.2 mg/dL (0.0-1.4); BUN 22 mg/dL (8-23); BUN/CREATININE RATIO 22 (12-20 (CALC)); CARBON DIOXIDE 27 mmol/l (22-30); CHLORIDE 101 mmol/l (95-108); GFR FOR AFR.AMER. > 60 ML/MIN (>=60 (CALC)); GFR OTHER RACES 53 ML/MIN (>=60 (CALC)); SGOT/AST 18 u/l (9-36); SODIUM 133 mmol/l (137-146); TOTAL PROTEIN 6.3 g/dL (6.3-8.2)
--- NOTE | 2022-01-21 17:00 | NUR ---
IV DRIP CARDIZEM TITRATION TO 2.5 MG/HR. PATIENT RATE DECREASED TO 70S WITH PACS.
[2022-01-21 17:09] LABS: URINE BILIRUBIN - DIPSTICK NEGATIVE (NEGATIVE); URINE BLOOD DIPSTICK NEGATIVE (NEGATIVE); URINE COLOR YELLOW; URINE GLUCOSE - DIPSTICK NEGATIVE (NEGATIVE); URINE KETONE NEGATIVE (NEGATIVE); URINE LEUK ESTERASE NEGATIVE (NEGATIVE); URINE PROTEIN - DIPSTICK NEGATIVE (NEG-TRACE); URINE UROBILINOGEN - DIPSTICK 0.2 E.U./dL (0.2)
[2022-01-21 17:11] LABS: URINE NITRITE - DIPSTICK NEGATIVE (Negative)
[2022-01-21] MEDS ORDERED: LISINOP/HCTZ1 TAB PO (17:52)
--- NOTE | 2022-01-21 18:50 | NUR ---
81 yr old white female admitted to icu6 per stretcher from er. transferred self to bed. denies distress. monitoring coordinator shows sinus arrythmia freq pacs & pvcs. #18 rac saline lock. cardizem off @ present. history obtained per pt. oriented to room. fall precautions cont.
--- NOTE | 2022-01-21 19:05 | NUR ---
PATIENT TAKEN TO ICU. CARDIZEM DRIP STOPPED DUE TO HR BEING 50S TO 70S. STILL IRREGULAR, BUT PATIENT IS STABLE.
--- NOTE | 2022-01-21 20:45 | NUR ---
rt notified of pts request for water for home cpap machine.
--- NOTE | 2022-01-21 20:52 | NUR ---
Patient placed on Home CPAP unit HS with 2 liters of oxygen. Tolerating well at this time.
--- NOTE | 2022-01-21 22:50 | NUR ---
lab here. blood drawn.
[2022-01-22] VITALS (19 sets, daily range): BP systolic 117–146; BP diastolic 33–59
--- NOTE | 2022-01-22 02:00 | NUR ---
eyes closed. no distress. monitor technician shows sinus arrythmia pacs & pvcs.
--- NOTE | 2022-01-22 04:00 | NUR ---
eyes closed. no apparent distress.
--- NOTE | 2022-01-22 04:48 | NUR ---
lab here. bblood drawn.
--- NOTE | 2022-01-22 06:14 | NUR ---
eyes closed. no distress. media monitor shows sinus tico pacs.
[2022-01-22 06:36] LABS: HEMOGLOBIN 7.4 g/dl (12.0-16.0); MEAN CELL VOLUME 72.7 fL CALC (80.0-100.0); MEAN CORPUSCULAR HGB 21.5 pG CALC (26.0-32.0); MEAN CORPUSCULAR HGB CONC 29.6 g/dL CAL (32.0-36.0); RED BLOOD COUNT 3.44 mill/uL (4.20-5.60); RED CELL DISTRI WIDTH 18.2 % (11.5-15.5)
--- NOTE | 2022-01-22 06:48 | NUR ---
NEB TX NOT GIVEN DUE TO COVID STATUS.
[2022-01-22 07:13] LABS: ANION GAP 7 (6-22 (CALC)); BUN 22 mg/dL (8-23); BUN/CREATININE RATIO 27 (12-20 (CALC)); CARBON DIOXIDE 29 mmol/l (22-30); CHLORIDE 103 mmol/l (95-108); CREATININE 0.8 mg/dL (0.5-1.0); GFR FOR AFR.AMER. > 60 ML/MIN (>=60 (CALC)); GFR OTHER RACES > 60 ML/MIN (>=60 (CALC)); MAGNESIUM 2.1 mg/dL (1.6-2.3); POTASSIUM 4.5 mmol/l (3.5-5.1); SODIUM 134 mmol/l (137-146)
[2022-01-29] MEDS ORDERED: CALCI23 PO (09:41)
[2022-01-29] MEDS ORDERED: VITAMIN D PO (09:41)
[2022-01-29] MEDS ORDERED: MELATONIN PO (09:42)
[2022-01-29] MEDS ORDERED: CENTRUM SILVER PO (09:42)
[2022-01-29] MEDS ORDERED: COQ10 (09:42)
[2022-01-29] MEDS ORDERED: ALLERGY RELF PO (09:42)
== END 2022-01-22 10:50 | disposition home or self-care (01) ==
LOC: ED 14:31 → ED-I 16:20 → ED 17:02 → ICU 17:03
PROVIDERS: Family Medicine; ADMIT Internal Medicine; ATTEND Internal Medicine
DX: I48.0 Paroxysmal atrial fibrillation (principal); U07.1 COVID-19; I10 Essential (primary) hypertension; J43.9 Emphysema, unspecified; D50.9 Iron deficiency anemia, unspecified; E53.8 Deficiency of other specified B group vitamins; E78.5 Hyperlipidemia, unspecified; F41.9 Anxiety disorder, unspecified; F32.A Depression, unspecified; Z87.01 Personal history of pneumonia (recurrent); Z86.73 Personal history of transient ischemic attack (TIA), and cerebral infarction without residual deficits; Z79.01 Long term (current) use of anticoagulants; Z87.891 Personal history of nicotine dependence; R06.00 Dyspnea, unspecified; J98.11 Atelectasis
CPT/HCPCS: J1756; J3420

== ENCOUNTER 2022-02-04 14:11 | Observation (INO) | payer MEDICARE ==
[2022-02-04] VITALS (32 sets, daily range): BP systolic 80–154; BP diastolic 40–75
[~2022-02-04] VITALS: Ht 160 cm; Wt 75.0 kg
[~2022-02-04 14:11] MED LIST changes: +ALLERGY RELF PO; +CALCI23 PO; +CENTRUM SILVER PO; +COQ10; +LISINOP/HCTZ1 TAB PO; +MELATONIN PO; +VITAMIN D PO
[2022-02-04 14:35] LABS: MEAN CELL VOLUME 76.6 fL CALC (80.0-100.0); MEAN CORPUSCULAR HGB CONC 28.7 g/dL CAL (32.0-36.0); NEUT# 5.75 thou/uL (2.00-7.15); RED BLOOD COUNT 4.1 mill/uL (4.20-5.60); RED CELL DISTRI WIDTH 22.7 % (11.5-15.5)
[2022-02-04 14:43] LABS: HEMATOCRIT 31.4 % (37.0-47.0)
[2022-02-04 14:49] LABS: ALBUMIN 3.9 g/dL (3.2-5.0); ALKALINE PHOSPHATASE 122 u/l (38-126); ANION GAP 12 (6-22 (CALC)); BUN 22 mg/dL (8-23); BUN/CREATININE RATIO 15 (12-20 (CALC)); CARBON DIOXIDE 26 mmol/l (22-30); CHLORIDE 101 mmol/l (95-108); CREATININE 1.4 mg/dL (0.5-1.0); GFR FOR AFR.AMER. 44 ML/MIN (>=60 (CALC)); GFR OTHER RACES 36 ML/MIN (>=60 (CALC)); LIPASE 66 u/l (23-300); POTASSIUM 3.7 mmol/l (3.5-5.1); SGOT/AST 22 u/l (9-36); SODIUM 134 mmol/l (137-146)
[2022-02-04 15:01] LABS: BILIRUBIN, TOTAL 0.4 mg/dL (0.0-1.4)
[2022-02-04 20:20] LABS: URINE BILIRUBIN - DIPSTICK NEGATIVE (NEGATIVE); URINE BLOOD DIPSTICK NEGATIVE (NEGATIVE); URINE CLARITY CLEAR; URINE COLOR YELLOW; URINE GLUCOSE - DIPSTICK NEGATIVE (NEGATIVE); URINE KETONE NEGATIVE (NEGATIVE); URINE LEUK ESTERASE NEGATIVE (Negative); URINE NITRITE - DIPSTICK NEGATIVE (Negative); URINE PH 5.5 (4.5-8.0); URINE PROTEIN - DIPSTICK NEGATIVE (NEG-TRACE); URINE SPECIFIC GRAVITY >=1.030; URINE UROBILINOGEN - DIPSTICK 0.2 E.U./dL (0.2)
[2022-02-05] VITALS (20 sets, daily range): BP systolic 106–164; BP diastolic 33–66
== END 2022-02-05 11:10 | disposition home or self-care (01) ==
LOC: ED 14:11 → ED-I 15:09 → ED 15:09 → ICU 16:12
PROVIDERS: Internal Medicine; ADMIT Internal Medicine; ATTEND Internal Medicine
DX: I48.0 Paroxysmal atrial fibrillation (principal); N17.9 Acute kidney failure, unspecified; I10 Essential (primary) hypertension; J43.9 Emphysema, unspecified; J96.10 Chronic respiratory failure, unspecified whether with hypoxia or hypercapnia; E78.5 Hyperlipidemia, unspecified; F41.9 Anxiety disorder, unspecified; F32.A Depression, unspecified; G47.33 Obstructive sleep apnea (adult) (pediatric); Z86.73 Personal history of transient ischemic attack (TIA), and cerebral infarction without residual deficits; Z79.01 Long term (current) use of anticoagulants; Z99.81 Dependence on supplemental oxygen; Z87.01 Personal history of pneumonia (recurrent); Z87.891 Personal history of nicotine dependence; Z20.822 Contact with and (suspected) exposure to COVID-19

== ENCOUNTER 2022-03-18 08:25 | Day surgery (SDC) | payer MEDICARE ==
[~2022-03-18] VITALS: Ht 160 cm; Wt 72.6 kg
[~2022-03-18 08:25] MED LIST changes: +FLECAINIDE50 MG PO; +GNP MELATONIN3 MG PO; +K-TAB20 MEQ PO
[2022-03-18 12:19] VITALS: BP 139/49
== END 2022-03-18 11:19 | disposition home or self-care (01) ==
LOC: ENDO 08:25 → ORM 09:45 → ENDO 10:40
PROVIDERS: ATTEND Surgery
PROC: 0DBK8ZX Excision of Ascending Colon, Via Natural or Artificial Opening Endoscopic, Diagnostic (ICD-10-PCS; principal; 2022-03-18)
PROC: 0DBM8ZX Excision of Descending Colon, Via Natural or Artificial Opening Endoscopic, Diagnostic (ICD-10-PCS; 2022-03-18)
DX: D50.9 Iron deficiency anemia, unspecified (principal); K57.30 Diverticulosis of large intestine without perforation or abscess without bleeding; D12.2 Benign neoplasm of ascending colon; K63.5 Polyp of colon; K64.8 Other hemorrhoids; I10 Essential (primary) hypertension; I48.91 Unspecified atrial fibrillation; J44.9 Chronic obstructive pulmonary disease, unspecified; Z79.01 Long term (current) use of anticoagulants

== ENCOUNTER 2022-09-01 11:11 | Inpatient (IN) | payer MEDICARE ==
[~2022-09-01] VITALS: Ht 160 cm; Wt 80.2 kg
--- NOTE | 2022-09-01 11:12 | NUR ---
PT TO ROOM VIA EMS
[2022-09-01 11:16] VITALS: BP 143/54
[2022-09-01 11:30] VITALS: BP 142/56
[2022-09-01 12:23] LABS: BASO% 0.1 % (0-3); HEMATOCRIT 30.8 % (37.0-47.0); HEMOGLOBIN 9.2 g/dl (12.0-16.0); IMMATURE GRANULOCYTES 0.2 % (0.0-5.0); LYMPH% 1.8 % (15-41); MEAN CORPUSCULAR HGB 23.9 pG CALC (26.0-32.0); MEAN CORPUSCULAR HGB CONC 29.9 g/dL CAL (32.0-36.0); MONO% 5.2 % (2-13); NEUT# 17.11 thou/uL (2.00-7.15); NEUT% 92.7 % (42-76); RED BLOOD COUNT 3.85 mill/uL (4.20-5.60); RED CELL DISTRI WIDTH 16.5 % (11.5-15.5)
--- NOTE | 2022-09-01 12:23 | NUR ---
Reassessment of patient completed. No distress noted.
[2022-09-01 12:46] LABS: ALBUMIN 3.7 g/dL (3.2-5.0); ALKALINE PHOSPHATASE 100 u/l (38-126); BUN 16 mg/dL (8-23); BUN/CREATININE RATIO 16 (12-20 (CALC)); CARBON DIOXIDE 29 mmol/l (22-30); CHLORIDE 98 mmol/l (95-108); GFR FOR AFR.AMER. > 60 ML/MIN (>=60 (CALC)); GFR OTHER RACES 53 ML/MIN (>=60 (CALC)); SGOT/AST 22 u/l (9-36); SODIUM 135 mmol/l (137-146); TOTAL PROTEIN 6.5 g/dL (6.3-8.2)
[2022-09-01 12:47] LABS: INTERNATIONAL NORMALIZED RATIO 1.4 RATIO (0.7-1.3)
[2022-09-01 12:48] LABS: ANION GAP 11 (6-22 (CALC)); BILIRUBIN, TOTAL 0.5 mg/dL (0.02-1.3); POTASSIUM 3.2 mmol/l (3.5-5.1)
--- NOTE | 2022-09-01 13:13 | NUR ---
Reassessment of patient completed. No distress noted.
[2022-09-01 13:35] VITALS: BP 149/57
[2022-09-01 14:00] VITALS: BP 127/56
--- NOTE | 2022-09-01 14:13 | NUR ---
Reassessment of patient completed. No distress noted.
[2022-09-01 14:45] VITALS: BP 145/52
--- NOTE | 2022-09-01 14:45 | NUR ---
RECEIVE PATIENT FROM ED. REPORT FROM EDYTA ER NURSE. PATIENT ALERT AND ORIENTED X3. NO DISTRESS AT THIS TIME. OXIGEN 2L NASAL CANULA. PATIENT IS EDUCATED ABOUD MEDICATIONS ADMISSION AND NURSING PLAN FOR TODAY. PATIENT REFER UNDERSTAND. ASSESSMENTE HEAD-TO TOE COMPLETE. SAFETY AND FALL PRECAUTIONS IN PLACE. CALL LIGHT WITHIN IN REACH.
--- NOTE | 2022-09-01 15:00 | NUR ---
BEDSIDE REPORT GIVEN TO DEMI. PT ABLE TO TRANSFER FROM WHEELCHAIR TO BED WITHOUT DIFFICULTY
--- NOTE | 2022-09-01 16:45 | NUR ---
PATIENT STABLE AT THE TIME OF THIS NOTE. ROUNDS EVERY HOUR FOR THE PREVENTION OF FALLS AND SATISFACTION OF THE NEEDS OF THE PATIENT.
[2022-09-01 18:49] VITALS: BP 120/37
--- NOTE | 2022-09-01 20:10 | NUR ---
RECEIVED REPORT FROM ALIYA MARTINEZ. PT RESTING ON BED LOW FOWLERS; A&O X3. O2 @ 2L VIA NASAL CANNULA IN PLACE. TELEMETRY IN PLACE WITH LAST READING SR-84. IV SITE HEALTHY AND PATENT. ACTIVE BOWEL SOUNDS X4 QUADRANTS. NO DISTRESS NOTED. PT DENIES PAIN AT THE MOMENT. PT WEARING C-PAP FROM HOME AT THIS TIME. SAFETY PRECAUTIONS IN PLACE WITH CALL LIGHT IN REACH.
[2022-09-02] VITALS (7 sets, daily range): BP systolic 126–150; BP diastolic 47–60
--- NOTE | 2022-09-02 00:11 | NUR ---
PT RESTING ON BED WITH EYES CLOSED, SUPINE POSITION. NO DISTRESS OR PAIN NOTED. VS COMPLETED. C-PAP FROM HOME IN PLACE. NO VOICED NEEDS AT THIS TIME. SAFETY PRECAUTIONS IN PLACE WITH CALL LIGHT IN REACH.
--- NOTE | 2022-09-02 01:45 | NUR ---
RECEIVED CALL FROM ER, PT HR 130'S-140'S. EKG ORDERED; SHOWED A-FIB WITH AVR, PT HX A-FIB; DR NOLAN NOTIFIED OF SAME. DR PINEDA NEW ORDERS: POTASSIUM 40 MEQ PO, MAG 2GM IV; METOPROLOL 5 MG IV FOR HR >120 IF SUSTAINING, IF BACK AND FORTH BETWEEN NORMAL RHYTHM JUST MONITOR.
--- NOTE | 2022-09-02 04:00 | NUR ---
PT RESTING ON BED WITH EYES CLOSED. NO DISTRESS OR PAIN NOTED. IV HEALTHY AND PATENT, INFUSING MAGNESIUM PER ORDER. NO VOICED NEEDS AT THIS TIME. SAFETY PRECAUTIONS IN PLACE WITH CALL LIGHT IN REACH.
[2022-09-02 05:37] LABS: HEMATOCRIT 28.1 % (37.0-47.0); HEMOGLOBIN 8.5 g/dl (12.0-16.0); MEAN CELL VOLUME 79.6 fL CALC (80.0-100.0); MEAN CORPUSCULAR HGB 24.1 pG CALC (26.0-32.0); MEAN CORPUSCULAR HGB CONC 30.2 g/dL CAL (32.0-36.0); RED BLOOD COUNT 3.53 mill/uL (4.20-5.60); RED CELL DISTRI WIDTH 16.3 % (11.5-15.5)
[2022-09-02 05:53] LABS: ALBUMIN 3.2 g/dL (3.2-5.0); ALKALINE PHOSPHATASE 86 u/l (38-126); BUN 20 mg/dL (8-23); BUN/CREATININE RATIO 21 (12-20 (CALC)); CARBON DIOXIDE 29 mmol/l (22-30); CHLORIDE 102 mmol/l (95-108); CREATININE 0.9 mg/dL (0.5-1.0); GFR FOR AFR.AMER. > 60 ML/MIN (>=60 (CALC)); GFR OTHER RACES 60 ML/MIN (>=60 (CALC)); SGOT/AST 18 u/l (9-36); SODIUM 132 mmol/l (137-146)
[2022-09-02 05:56] LABS: ANION GAP 5 (6-22 (CALC)); MAGNESIUM 2.9 mg/dL (1.6-2.3); POTASSIUM 3.9 mmol/l (3.5-5.1)
--- NOTE | 2022-09-02 07:00 | NUR ---
RECEIVE REPORT FROM DAMIÁN PERERA.
--- NOTE | 2022-09-02 08:00 | NUR ---
PATIENT ALERT AND ORIENTED X3. ASSESSMENTE HEAD-TO TOE COMPLETE. NO DISTRESS OBSERVE AT THIS TIME. PATIENT IS EDUCATED ABOUD MEDICATIONS AND NURSING PLAN FOR TODAY. PATIENT ON TELE SR AT THIS TIME. SAFETY AND FALL PRECAUTIONS IN PLACE. CALL LIGHT WITHIN IN REACH.
--- NOTE | 2022-09-02 16:32 | NUR ---
PATIENT RESTING IN BED STABLE AT THIS TIME. ANY PAIN OR DISCOMFOR. SAFETY AND FALL PRECAUTIONS IN PLACE. CALL LIGHT WITHIN IN REACH.
--- NOTE | 2022-09-02 20:10 | NUR ---
RECEIVED REPORT FROM ALIYA MARTINEZ. PT RESTING ON BED LOW FOWLERS; A&O X3. O2 @2L VIA NASAL CANNULA IN PLACE. PT ASSISSTED WITH C-PAP PLACEMENT. TELEMETRY IN PLACE. IV SITE HEALTHY AND PATENT. ACTIVE BOWEL SOUNDS X4 QUADRANTS. SAFETY PRECAUTIONS IN PLACE WITH CALL LIGHT IN REACH.
[2022-09-03] VITALS (23 sets, daily range): BP systolic 118–168; BP diastolic 44–65
--- NOTE | 2022-09-03 | NUR ---
PT RESTING WITH EYES CLOSED. C-PAP FROM HOME IN PLACE WITH 02 @ 2L VIA NASAL CANNULA. NO DISTRESS OR PAIN NOTED. SAFETYPRECAUTIONS IN PLACE WITH CALL LIGHT IN REACH.
--- NOTE | 2022-09-03 01:00 | NUR ---
PT C/O CHEST PAIN IRRADIATING TO LEFT ARM; EKG ORDERED, DR BREWER NOTIFIED OF SAME AND RESULTS OF EKG. NEW ORDERS FOR TROPONIN Q4, MAALOX AND NITRO SUBLINGUAL. ORDERS SEND TO [facility], WILL ADMINISTERED SOON PHARMACY PROFILE MEDICATIONS.
[2022-09-03 01:49] LABS: HEMOGLOBIN 8.2 g/dl (12.0-16.0); MEAN CELL VOLUME 79.2 fL CALC (80.0-100.0); MEAN CORPUSCULAR HGB CONC 30.4 g/dL CAL (32.0-36.0); RED BLOOD COUNT 3.41 mill/uL (4.20-5.60); RED CELL DISTRI WIDTH 16.3 % (11.5-15.5)
[2022-09-03 01:57] LABS: ALBUMIN 3.2 g/dL (3.2-5.0); CREATININE 1.1 mg/dL (0.5-1.0); MAGNESIUM 2.4 mg/dL (1.6-2.3); POTASSIUM 3.4 mmol/l (3.5-5.1)
--- NOTE | 2022-09-03 04:10 | NUR ---
PT RESTING ON BED WITH EYES CLOSED, SUPINE POSITION. NO DISTRESS OR PAIN NOTED. C-PAP IN PLACE. NO VOICED NEEDS AT THIS TIME. SAFETY PRECAUTIONS IN PLACE WITH CALL LIGHT IN REACH.
--- NOTE | 2022-09-03 07:00 | NUR ---
RECEIVE REPORT FROM DAMIÁN PERERA.
--- NOTE | 2022-09-03 07:15 | NUR ---
ALERT AND ORIENTED PATIENT X3. HR >130 BP 146/[address] NOLAN[address] THE DOCTOR ISSUES A MEDICAL ORDER TO CONTROL THE HR. THE MEDICAL ORDER IS COMPLETED. PATIENT WITH ORDER FOR CONSULTATION WITH [employer] PIPE SUPERVISOR DR. HENDERSON FOR TODAY. THE PATIENT'S VITAL SIGNS CONTINUE TO BE MONITORED AND DOCTOR NOLAN IS INFORMED OF ALL CHANGES.
--- NOTE | 2022-09-03 07:19 | NUR ---
PT REMOVED FROM CPAP PLACED ON 2L NC ST 95%
[2022-09-03] MEDS ORDERED: FLECAINIDE50 MG PO (08:14)
--- NOTE | 2022-09-03 08:34 | NUR ---
female pt received from [facility] via bed to ICU 6 accompanied by nurse in stable condition; bedside report received from Keara Nice RN; assessment completed at this time; pt alert and oriented; denies pain pain/ palpitations; resp even and unlabored; lungs clear anter, coarse/wheezing posterior bases; skin color wnl; o2 per nc at 3L; loose case therapist cough noted; hr irreg; strong pulses; no edema noted; afib 130-140s on monitor; abd soft with bs present; pt admits to bm this am; pt admits to voiding without complication; no urine to inspect at this time; #20 ems site flushed and patent to lac; #22 started to rw saline locked; plan of care explained; call light within reach; will continue to monitor
--- NOTE | 2022-09-03 08:37 | NUR ---
PATIENT CONTINUES WITH HR >140 DOCTOR NOLAN ISSUES TRANSFER ORDER TO ICU. PATIENT IS TRANSFERRED ACCORDING TO MEDICAL ORDER. REPORT GIVED TO JOSE JUAN PISANO. REFERRED PATIENT WILL NOTIFY FAMILY. ALL CHANGES ARE REPORTED TO THE EMERGENCY ROOM.
--- NOTE | 2022-09-03 08:45 | NUR ---
Dr Lazo present at bedside; plan of care/ cardizem bolus followed with gtt reviewed; will continue to monitor
--- NOTE | 2022-09-03 09:45 | NUR ---
Dr Lazo notified that pt has converted to NSR prior to any medication/ bolus of cardizem gtt being given; meds held; sr 80-90s on monitor; will continue to monitor
--- NOTE | 2022-09-03 10:17 | NUR ---
Tariq Renteria, Cardiology ONLINE PROJECT MANAGER present at bedside to assess pt and discuss plan of care
[2022-09-03] MEDS ORDERED: DILT-XR120 MG PO (10:26)
--- NOTE | 2022-09-03 12:05 | NUR ---
awake in bed; assist to sit at the side of the bed for lunch; sr-st on monitor; iv intact; o2 per nc; call light within reach; will continue to monitor
--- NOTE | 2022-09-03 13:30 | NUR ---
pt voices complaints of jitterness and elevated hr when receiving last neb; albuterol last given; albuterol changed to Xopenex as per MD orders
--- NOTE | 2022-09-03 14:00 | NUR ---
awake in bed; sr on monitor; iv intact; offers no complaints; call light within reach; will continue to monitor
--- NOTE | 2022-09-03 16:10 | NUR ---
awake in bed; visitors present at bedside; offers no complaints; glynn crackers and soda provided as per request; will continue to monitor
--- NOTE | 2022-09-03 17:58 | NUR ---
awake sitting at the side of the bed eating dinner; offers no complaints; iv intact; sr on monitor; o2 per nc; call light within reach
--- NOTE | 2022-09-03 20:20 | NUR ---
awake. denies resp distress. o2 cont per nc. leather production worker shows sinus rhythm. saline locks x2 in place. po fluids taken well. voided per bsc. fall precautions cont.
--- NOTE | 2022-09-03 22:00 | NUR ---
eyes closed. home cpap conts. no distress.
[2022-09-04] VITALS (17 sets, daily range): BP systolic 118–158; BP diastolic 42–111
--- NOTE | 2022-09-04 00:01 | NUR ---
eyes closed. no distress. night monitor shows sinus rhythm.
--- NOTE | 2022-09-04 02:00 | NUR ---
resting quietly. resps even & unlabored. no apparent distress. cpap conts.
--- NOTE | 2022-09-04 04:00 | NUR ---
eyes closed. no resp diff. ekg monitor shows sinus rhythm.
--- NOTE | 2022-09-04 05:30 | NUR ---
lab here. blood drawn. up to bs. voided. urine spec sent to lab.
[2022-09-04 05:40] LABS: HEMATOCRIT 27.4 % (37.0-47.0); HEMOGLOBIN 8.2 g/dl (12.0-16.0); MEAN CELL VOLUME 80.4 fL CALC (80.0-100.0); MEAN CORPUSCULAR HGB CONC 29.9 g/dL CAL (32.0-36.0); RED BLOOD COUNT 3.41 mill/uL (4.20-5.60); RED CELL DISTRI WIDTH 16.6 % (11.5-15.5)
[2022-09-04 05:56] LABS: ALBUMIN 3.2 g/dL (3.2-5.0); ALKALINE PHOSPHATASE 67 u/l (38-126); ANION GAP 10 (6-22 (CALC)); BUN 39 mg/dL (8-23); BUN/CREATININE RATIO 37 (12-20 (CALC)); CARBON DIOXIDE 29 mmol/l (22-30); CHLORIDE 103 mmol/l (95-108); GFR FOR AFR.AMER. > 60 ML/MIN (>=60 (CALC)); GFR OTHER RACES 53 ML/MIN (>=60 (CALC)); MAGNESIUM 2.6 mg/dL (1.6-2.3); SGOT/AST 32 u/l (9-36); SODIUM 137 mmol/l (137-146); TOTAL PROTEIN 5.6 g/dL (6.3-8.2)
[2022-09-04 06:00] LABS: POTASSIUM 4.6 mmol/l (3.5-5.1)
[2022-09-04 06:20] LABS: URINE BILIRUBIN - DIPSTICK NEGATIVE (NEGATIVE); URINE BLOOD DIPSTICK NEGATIVE (NEGATIVE); URINE COLOR YELLOW; URINE GLUCOSE - DIPSTICK NEGATIVE (NEGATIVE); URINE KETONE NEGATIVE (NEGATIVE); URINE LEUK ESTERASE NEGATIVE (NEGATIVE); URINE PROTEIN - DIPSTICK NEGATIVE (NEG-TRACE); URINE SPECIFIC GRAVITY 1.025; URINE UROBILINOGEN - DIPSTICK 0.2 E.U./dL (0.2)
[2022-09-04 06:21] LABS: URINE NITRITE - DIPSTICK NEGATIVE (Negative)
--- NOTE | 2022-09-04 07:45 | NUR ---
REPORT RECEIVED FROM DISCOVERY GUIDE- PT OBSERVED IN BED WITH EYES CLOSED - NO S/S DISTRESS - CALL LIGHT IN REACH
--- NOTE | 2022-09-04 11:02 | NUR ---
PT RECIVED TO [facility] VIA WHEEL CHAIR REPORT PROVIDED FROM PEPE PISANO. PT A/OX3 DENIES ADDITIONAL NEEDS AT THE TIME PT IV SITES NOTED . RESPIRATIONS COARSE, ON 3L NC PT STATED OFF OXYGEN PER SATING 93% ON ROOM AIR. PT STATED ATTEMPTS TO STAY OFF OXYGEN IF SATURATIONS ARE STABLE. PT CALL LIGHT IN REACH.
--- NOTE | 2022-09-04 11:12 | NUR ---
PT TRANSPORTED TO MED SURG - REPORT GIVEN TO CAPRI - PT LEFT WITH ALL PERSONAL BELONGINGS IN STABLE CONDITION
--- NOTE | 2022-09-04 12:11 | NUR ---
PT DENIES ADDITIONAL NEEDS AT THE TIME. PT STILL OFF OXYGEN.
--- NOTE | 2022-09-04 16:57 | NUR ---
PT RESTING UP TO CHAIR PT DENIES ADDITIONAL NEEDS OTHER THAN CRACKERS.PROVIDED FOR PT.
--- NOTE | 2022-09-04 19:45 | NUR ---
RECEIVED REPORT FROM DAYSWAFT NURSE. PT NOTED SITTING UP IN CHAIR. PT DENIES ANY PAIN AT THIS TIME. A/OX4. EDUCATED PT ON PLAN OF CARE FOR TONIGHT. CALL LIGHT WITHIN REACH AND SAFETY PRECAUTIONS IN PLACE.
[2022-09-05] VITALS (8 sets, daily range): BP systolic 137–157; BP diastolic 42–62
--- NOTE | 2022-09-05 | NUR ---
PT IN BED SLEEPING. NO S/S OF DISTRESS. CALL LIGHT WITHIN REACH AND SAFETY PRECAUTIONS IN PLACE.
--- NOTE | 2022-09-05 04:00 | NUR ---
PT LAYING SUPINE IN BED SLEEPING. NO S/S OF DISTRESS. CALL LIGHT WITHIN REACH AND SAFETY PRECAUTIONS IN PLACE.
[2022-09-05 06:40] LABS: BASO% 0.1 % (0-3); HEMATOCRIT 26.5 % (37.0-47.0); HEMOGLOBIN 8.1 g/dl (12.0-16.0); IMMATURE GRANULOCYTES 0.6 % (0.0-5.0); MEAN CELL VOLUME 79.8 fL CALC (80.0-100.0); MEAN CORPUSCULAR HGB 24.4 pG CALC (26.0-32.0); MEAN CORPUSCULAR HGB CONC 30.6 g/dL CAL (32.0-36.0); MONO% 2.8 % (2-13); NEUT# 8.3 thou/uL (2.00-7.15); NEUT% 92.5 % (42-76); RED BLOOD COUNT 3.32 mill/uL (4.20-5.60); RED CELL DISTRI WIDTH 16.6 % (11.5-15.5)
[2022-09-05 07:15] LABS: ALBUMIN 2.8 g/dL (3.2-5.0); CREATININE 1.1 mg/dL (0.5-1.0); MAGNESIUM 2.5 mg/dL (1.6-2.3); POTASSIUM 4.7 mmol/l (3.5-5.1); TOTAL PROTEIN 4.9 g/dL (6.3-8.2)
--- NOTE | 2022-09-05 08:00 | NUR ---
ASSUMED CARE OF PT. PT RESTING IN CHAIR. STATES BREATHING IMPROVED. PLAN OF CARE DISCUSSED. DENIES ANY NEEDS AT THIS TIME. CALL LIGHT AND PERSONAL BELONGING WITHIN REACH. WILL CONTINUE TO MONITOR
--- NOTE | 2022-09-05 12:00 | NUR ---
PT RESTING IN CHAIR, EATING LUNCH. DENIES ANY NEEDS. CALL LIGHT WITHIN REACH. FAMILY AT BEDSIDE.
--- NOTE | 2022-09-05 16:00 | NUR ---
PT ASSISTED TO RESTROOM, NO COMPLAINTS OF PAIN. DENIES ANY NEEDS. WILL CONTINEU TO MONITOR.
--- NOTE | 2022-09-05 19:47 | NUR ---
RECIEVED REPORT. PT A/OX3. RESPIRATIONS EVEN AND UNLABORED ON ROOM AIR. COURSE LUNG SOUNDS UPON ASCULTATION. HEART RHYTHM NORMAL. BOWEL SOUNDS ACTIVE. #22G RFA PATENT. PULSE STRONG. PT DENIES OF ANY PAINS OR DISCOMFORTS. ALL SAFTEY PRECAUTIONS ARE IN PLACE WITH CALL LIGHT IN REACH.
[2022-09-06] VITALS: BP 139/42
--- NOTE | 2022-09-06 00:55 | NUR ---
PT RESTING IN SEMI FOWLERS POSITION. RESPIRATIONS EVEN AND UNLABORED ON ROOM AIR. TELE MONITORING IN PLACE. #22G RFA NOTED. PT DENIES OF ANY ADDITIONAL NEEDS. ALL SAFTEY PRECAUTIONS ARE IN PLACE WITH CALL LIGHT IN REACH.
[2022-09-06 04:00] VITALS: BP 138/38
[2022-09-06 04:19] VITALS: BP 138/38
--- NOTE | 2022-09-06 04:39 | NUR ---
PT SLEEPING IN SEMI FOWLERS POSITION. RESPIRATIONS EVEN AND UNLABORED ON ROOM AIR. PRN O2 AT BEDSIDE. #22RFA PATENT. TELE MONITORING IN PLACE. NO SIGNS OF ANY DISTRESS. ALL SAFTEY PRECAUTIONS ARE IN PLACE WITH CALL LIGHT IN REACH
[2022-09-06 04:51] LABS: HEMATOCRIT 26.8 % (37.0-47.0); MEAN CORPUSCULAR HGB 23.9 pG CALC (26.0-32.0); MEAN CORPUSCULAR HGB CONC 29.9 g/dL CAL (32.0-36.0); RED BLOOD COUNT 3.35 mill/uL (4.20-5.60); RED CELL DISTRI WIDTH 16.3 % (11.5-15.5)
[2022-09-06 05:07] LABS: ALBUMIN 2.8 g/dL (3.2-5.0); ALKALINE PHOSPHATASE 60 u/l (38-126); ANION GAP 9 (6-22 (CALC)); BUN 39 mg/dL (8-23); BUN/CREATININE RATIO 38 (12-20 (CALC)); CARBON DIOXIDE 26 mmol/l (22-30); CHLORIDE 105 mmol/l (95-108); GFR FOR AFR.AMER. > 60 ML/MIN (>=60 (CALC)); GFR OTHER RACES 53 ML/MIN (>=60 (CALC)); MAGNESIUM 2.4 mg/dL (1.6-2.3); SGOT/AST 24 u/l (9-36); SODIUM 135 mmol/l (137-146); TOTAL PROTEIN 4.9 g/dL (6.3-8.2)
[2022-09-06 05:17] LABS: POTASSIUM 5.2 mmol/l (3.5-5.1)
[2022-09-06 06:51] VITALS: BP 144/53
--- NOTE | 2022-09-06 07:05 | NUR ---
REPORT RECEIVED FROM DILMA LÓPEZ
--- NOTE | 2022-09-06 08:30 | NUR ---
PT RESTING IN RECLINER,A&O X3;ASSESSMENT COMPLETED;PT DENIES ANY CURRENT PAIN OR DISCOMFORTS,PAIN SCALE AND REPORTING EDUCATED;RESPIRATIONS EVEN AND UNLABORED ON RA,CLEAR LUNG SOUNDS;ABDOMEN SOFT ON PALPATION AND ACTIVE IN ALL4 QUADRANTS;STRONG PEDAL PULSES;SKIN INTACT;TELE MONITORING IN PLACE;#22G TO RFA FLUSHED AND PATENT,SITE APPEARS HEALTHY;PT DENIES ANY ADDITIONAL NEEDS AND IS ENCOURAGED TO CALL FOR ASSISTANCE IF NEEDED;CALL LIGHT IN REACH;WILL CONTINUE TO MONITOR
[2022-09-06 10:15] VITALS: BP 153/57
--- NOTE | 2022-09-06 11:35 | NUR ---
PT OOB RESTING IN RECLINER;RESPIRATIONS EVEN AND UNLABORED ON RA;PT DENIES ANY CURRENT PAIN OR DISCOMFORTS;TELE MONITORING IN PLACE;IV SITE PATENT;PT EDUCATED ON PLANS TO D/C HOME AND VERBALIZES UNDERSTANDING;ENCOURAGED TO CALL FOR ASSISTANCE IF NEEDED;FREQUENT ROUNDS MADE.
[2022-09-06] MEDS ORDERED: PREDNISONE10 MG PO (12:25)
[2022-09-06] MEDS ORDERED: KEFLEX500 MG PO (12:25)
--- NOTE | 2022-09-06 14:09 | NUR ---
ALL DISCHARGE INSTRUCTIONS PROVIDED AT THIS TIME;PT INSTRUCTED TO TAKE PREDNISONE TAPER DOSE, KEFLEX FOR 6 MORE DAYS PRESCRIBED, DOUBLE UP ON LASIX DOSE FOR 3 DAYS, MONITOR WEIGHT AND CONTINUE BREAHING TX; PT VERBALIZES UNDERSTANDING AND DENIES ANY ADDITIONAL NEEDS;TELE MONITORING D/C AT THIS TIME;AWAITING IV ABX TO FINISH FOR D/C HOME. FAMILY TO TRANSPORT PT HOME;FRQUENT ROUNDS MADE.
--- NOTE | 2022-09-06 15:30 | NUR ---
IV SITE REMOVED WITH CATHETER INTACT FOR D/C HOME.
--- NOTE | 2022-09-06 15:30 | NUR ---
Discharge instructions given. Patient verbalizes understanding of same. Discharged in stable condition via Wheelchair to Home with family. All belongings sent with pt. PT TRANSPORTED TO [facility] VIA ACCOMPANIED BY TRANSFER OPERATOR FOR D/C HOME.ALL BELONGINGS LEFT WITH PT AT THIS TIME.
== END 2022-09-06 15:30 | disposition home or self-care (01) | DRG 190 ==
LOC: ED 11:11 → ED-I 13:40 → ED 13:47 → MS2 13:48 → ICU 09-03 08:31 → MS2 09-04 11:02
PROVIDERS: Nurse Practitioner; Nurse Practitioner Family; ADMIT Internal Medicine; ATTEND Internal Medicine
DX: J44.1 Chronic obstructive pulmonary disease with (acute) exacerbation (principal); J96.21 Acute and chronic respiratory failure with hypoxia; I50.32 Chronic diastolic (congestive) heart failure; I11.0 Hypertensive heart disease with heart failure; I48.0 Paroxysmal atrial fibrillation; I25.10 Atherosclerotic heart disease of native coronary artery without angina pectoris; R07.9 Chest pain, unspecified; D50.9 Iron deficiency anemia, unspecified; E53.8 Deficiency of other specified B group vitamins; E07.89 Other specified disorders of thyroid; G47.33 Obstructive sleep apnea (adult) (pediatric); F32.A Depression, unspecified; F41.9 Anxiety disorder, unspecified; Z86.73 Personal history of transient ischemic attack (TIA), and cerebral infarction without residual deficits; Z99.81 Dependence on supplemental oxygen; Z86.16 Personal history of COVID-19; Z87.01 Personal history of pneumonia (recurrent); Z79.01 Long term (current) use of anticoagulants; Z87.891 Personal history of nicotine dependence; Z20.822 Contact with and (suspected) exposure to COVID-19
CPT/HCPCS: J3475; Q9967

== ENCOUNTER 2023-12-23 10:45 | Emergency (ER) | payer MEDICARE ==
[2023-12-23] VITALS (7 sets, daily range): BP systolic 138–199; BP diastolic 65–102
[~2023-12-23] VITALS: Ht 160 cm; Wt 70.3 kg
[~2023-12-23 10:45] MED LIST changes: +CITALOPRAM40 MG PO; +DILT-XR120 MG PO; +DOXYCYCLINE100 MG PO; +KEFLEX500 MG PO; +LIDOCAINE PAIN RE4 % TD; +LORTAB 5/3255 MG PO; +PREDNISONE20 MG PO
[2023-12-23] MEDS ORDERED: LIDOcaine HCl 1% (Local Anesth.) 20 ML VIAL STI STA (11:07)
[2023-12-23] MEDS ORDERED: POVIDONE IODINE 0.5 OZ/BTL TOP ONE (11:10)
[2023-12-23] MEDS ORDERED: Diph, Acellular Pertussis, Tet 0.5 ML/VIAL (Tdap) SDV IM ONE (11:10)
[2023-12-23 11:18] LABS: BASO% 0.3 % (0-3); EOS% 0.9 % (0-8); HEMATOCRIT 28.3 % (37.0-47.0); HEMOGLOBIN 8.2 g/dl (12.0-16.0); IMMATURE GRANULOCYTES 0.4 % (0.0-5.0); LYMPH% 4.1 % (15-41); MEAN CELL VOLUME 80.2 fL CALC (80.0-100.0); MEAN CORPUSCULAR HGB 23.2 pG CALC (26.0-32.0); MONO% 9.2 % (2-13); NEUT# 9.59 thou/uL (2.00-7.15); NEUT% 85.1 % (42-76); RED BLOOD COUNT 3.53 mill/uL (4.20-5.60); RED CELL DISTRI WIDTH 16.3 % (11.5-15.5)
[2023-12-23 11:41] LABS: ALBUMIN 3.2 g/dL (3.2-5.0); CREATININE 0.7 mg/dL (0.5-1.0); TOTAL PROTEIN 5.5 g/dL (6.3-8.2)
[2023-12-23 11:44] LABS: BILIRUBIN, TOTAL 0.4 mg/dL (0.02-1.3); POTASSIUM 3.5 mmol/l (3.5-5.1)
[2023-12-23] MEDS ORDERED: LABETALOL HCL 20 MG/ 4 ML CARTRG IV ONE (11:45)
[2023-12-23] MEDS ORDERED: HYDROcodone 5 MG/Acetaminophen 325 MG/COMBO PO ONE (12:20)
[2023-12-23] MEDS ORDERED: HYDROCO/APAP1 TA9 PO (13:05)
== END 2023-12-23 13:47 | disposition home or self-care (01) ==
LOC: ED 10:45
PROVIDERS: Family Medicine
PROC: 0HQ1XZZ Repair Face Skin, External Approach (ICD-10-PCS; principal; 2023-12-23)
PROC: 2W39X1Z Immobilization of Left Upper Extremity using Splint (ICD-10-PCS; 2023-12-23)
DX: S01.81XA Laceration without foreign body of other part of head, initial encounter (principal); S52.125A Nondisplaced fracture of head of left radius, initial encounter for closed fracture; I10 Essential (primary) hypertension; I48.91 Unspecified atrial fibrillation; J44.9 Chronic obstructive pulmonary disease, unspecified; G47.33 Obstructive sleep apnea (adult) (pediatric); F41.9 Anxiety disorder, unspecified; F32.A Depression, unspecified; W01.0XXA Fall on same level from slipping, tripping and stumbling without subsequent striking against object, initial encounter; Y93.K1 Activity, walking an animal; Z99.81 Dependence on supplemental oxygen; Z79.01 Long term (current) use of anticoagulants; Z86.73 Personal history of transient ischemic attack (TIA), and cerebral infarction without residual deficits; Z86.16 Personal history of COVID-19

== ENCOUNTER 2024-04-01 12:14 | Emergency (ER) | payer MEDICARE ==
[~2024-04-01] VITALS: Ht 160 cm; Wt 61.2 kg
[2024-04-01] VITALS (32 sets, daily range): BP systolic 121–170; BP diastolic 51–82
[~2024-04-01 12:14] MED LIST changes: +HYDRALAZINE HYD25 MG PO; +HYDROCO/APAP1 TA9 PO; +LISINOPRIL20 M1 PO
[2024-04-01 13:17] LABS: BASO% 0.2 % (0-3); EOS% 0.2 % (0-8); IMMATURE GRANULOCYTES 0.2 % (0.0-5.0); LYMPH% 4.9 % (15-41); MEAN CORPUSCULAR HGB 23.3 pG CALC (26.0-32.0); MONO% 7.9 % (2-13); NEUT# 7.81 thou/uL (2.00-7.15); NEUT% 86.6 % (42-76); RED BLOOD COUNT 2.57 mill/uL (4.20-5.60); RED CELL DISTRI WIDTH 16.3 % (11.5-15.5)
[2024-04-01 13:19] LABS: BILIRUBIN, TOTAL 0.4 mg/dL (0.02-1.3); CREATININE 0.7 mg/dL (0.5-1.0); HEMATOCRIT 20.7 % (37.0-47.0); MEAN CELL VOLUME 80.5 fL CALC (80.0-100.0)
[2024-04-01 13:21] LABS: POTASSIUM 4.2 mmol/l (3.5-5.1); TOTAL PROTEIN 5.4 g/dL (6.3-8.2)
[2024-04-01 13:22] LABS: URINE BLOOD DIPSTICK Negative (NEGATIVE); URINE COLOR Dark yellow; URINE GLUCOSE - DIPSTICK Negative (NEGATIVE); URINE KETONE Trace mg/dL (NEGATIVE); URINE LEUK ESTERASE Negative (NEGATIVE); URINE NITRITE - DIPSTICK Negative (Negative); URINE PH 5.5 (4.5-8.0); URINE PROTEIN - DIPSTICK Trace mg/dL (NEG-TRACE); URINE SPECIFIC GRAVITY 1.025
[2024-04-01 13:23] LABS: INTERNATIONAL NORMALIZED RATIO 1.3 RATIO (0.7-1.3); PROTHROMBIN TIME 12.5 SECONDS (9.0-12.5)
[2024-04-01] MEDS ORDERED: SODIUM CHLORIDE 0.9% 500 ML IV ONE ×2 (13:40→13:59)
[2024-04-01] MEDS ORDERED: Pantoprazole Sodium 40 MG VIAL (Protonix) IV ONE (13:40)
[2024-04-01] MEDS ORDERED: FUROSEMIDE 40 MG/4 ML SDV IV ONE (15:45)
[2024-04-01] MEDS ORDERED: PROTONIX40 M2 PO (18:01)
== END 2024-04-01 20:11 | disposition left against medical advice (07) ==
LOC: ED 12:14
PROVIDERS: Nurse Practitioner
PROC: 30233N1 Transfusion of Nonautologous Red Blood Cells into Peripheral Vein, Percutaneous Approach (ICD-10-PCS; principal; 2024-04-01)
PROC: 30233N1 Transfusion of Nonautologous Red Blood Cells into Peripheral Vein, Percutaneous Approach (ICD-10-PCS; 2024-04-01)
DX: D64.9 Anemia, unspecified (principal); K92.2 Gastrointestinal hemorrhage, unspecified; I48.91 Unspecified atrial fibrillation; J44.9 Chronic obstructive pulmonary disease, unspecified; I50.9 Heart failure, unspecified; E78.5 Hyperlipidemia, unspecified; G47.33 Obstructive sleep apnea (adult) (pediatric); F41.9 Anxiety disorder, unspecified; F32.A Depression, unspecified; Z99.81 Dependence on supplemental oxygen; Z86.16 Personal history of COVID-19; Z87.01 Personal history of pneumonia (recurrent); Z53.29 Procedure and treatment not carried out because of patient's decision for other reasons; Z79.01 Long term (current) use of anticoagulants; Z86.73 Personal history of transient ischemic attack (TIA), and cerebral infarction without residual deficits
CPT/HCPCS: J2470; P9016; Q9967